=== PATIENT | male | born 1945 | race Caucasian/White ===

== ENCOUNTER 2019-02-04 22:37 | Inpatient (IN) | payer MEDICARE, SELFPAY ==
[2019-02-04 22:37] VITALS: BP 127/100; PULSE 57; RESP 26; TEMP 35.8; O2SAT 82
--- NOTE | 2019-02-04 22:40 | NURSING ---
Pt direct admission from [facility]. No report was called on before arriving to floor from [facility] ER. Upon arriving on unit, Pt lethargic and leaning to the side on stretcher, labored breathing, skin pale and cool to touch. Pt pulled over from stretcher to bed, only moaning with some spastic muscle twitches. VS obtained, oxygen 82% on 5L NC. Pt placed on nonrebreather. Dr. Lowery paged to come see pt. Respiratory called to come see pt. Pt only responsive to painful stimuli. Rapid response called d/t mental status and respiratory status.
[2019-02-04 22:50] VITALS: PULSE 53; RESP 16; RESP 25; O2SAT 96
--- NOTE | 2019-02-04 22:55 | HP.PCM_ITS ---
Problem List (1) Acute encephalopathy Status: Acute History of Present Illness Date of Admission: 02/04/19 Chief Complaint: confusion This 73-year-old male who is a jail patient and was transferred from [facility] to our hospital because of urological needs. Patient was sent from the jail to [facility] because of mental status changes. Per emergency department doctor at [facility], patient was confused and agitated while at a jail. His blood sugars was low and even after administration of sugar which brought his blood glucose to the normal range patient still remained confused. Patient was sent to the jail after a recent treatment of bilateral cellulitis and reportedly completed IV vancomycin on the same day of presentation to the [facility] ED. He was also on fluconazole 200 mg daily and Bactrim DS twice daily for urinary tract infection. CT head obtained at [facility] was unremarkable. Chest x-ray read by radiologist showed no acute abnormalities. However ED doctor thought that there may be a possible right infiltrate. He had a white count of 12,900 with predominant neutrophils. Reportedly his white count few days ago was in the normal range. His H&H was 8/25 and that is around his baseline. His blood glucose was 31 and was given an amp of D50. His BUN/creatinine was 55/3.5. Emergency department doctor reported that few da ys ago his creatinine was 2.2. And previously his creatinine was in the mid to upper ones. There was difficulty placing a Monroy catheter because of marked phimosis. Bladder scan showed urinary volume of more than 700. Emergency department doctor thought that patient may need a urology to place a Monroy catheter. However [facility] did not have a urologist so the case was discussed with Dr. Abebe, urologist at [facility] who accept to see patient. Emergency department doctor reported the patient was recently diagnosed with metabolic encephalopathy. At the ED his ammonia was 60. His troponin and lactic acid was unremarkable. Because of the probable lung infiltrate emergency department doctor gave Zosyn. Rapid response was initially called on patient when patient's arrived from cardiopulmonary hospital because patient was responding only to painful stimuli and his oxygen saturation was in the 80s for which reason he was placed on oxygen by mask. Importantly patient had received Ativan from outside hospital before he was transferred here. From reports patient condition was no change compared to when he was at [facility] emergency department. At [facility] emergency department is potassium was 5.8. On arrival to the hospital his potassium was 7.2 and repeat was 7.8 for which reason patient was transferred from from [facility] to telemetry. Past Medical History Medical History: Medical History (Last Updated 02/05/19 @ 05:01 by Ricardo Lowery MD) HTN (hypertension) I10 Home Medications: Ambulatory Orders Medication Instructions Recorded Atenolol [Tenormin (Beta Mary)] 50 mg PO DAILY 02/04/19 Cholecalciferol (VIT D3) [Vitamin 1,000 unit PO DAILY 02/04/19 D] Docusate Sodium [Colace] 100 mg PO BID 02/04/19 Fluconazole [Diflucan] 200 mg PO DAILY 02/04/19 Gabapentin [Neurontin] 300 mg PO TIDCM 02/04/19 Hydrochlorothiazide [Hctz] 25 mg PO DAILY 02/04/19 Insulin NPH Human Isophane 40 unit SQ BID 02/04/19 [Novolin N] Losartan Potassium [Cozaar] 25 mg PO DAILY 02/04/19 Omeprazole [Prilosec] 20 mg PO DAILY 02/04/19 Oxybutynin Chloride [Ditropan Xl] 10 mg PO DAILY 02/04/19 Smz/Tmp Ds [Bactrim Ds] 1 tablet PO BID 02/04/19 Tamsulosin HCl [Flomax] 0.4 mg PO DAILY 02/04/19 Topiramate [Topamax] 100 mg PO DAILY 02/04/19 Surgical History: - - Unable to obtain at this time because of acute encephalopathy. Lives: Alf Tobacco Use: - - Unable to obtain at this time because of acute encephalopathy. Drugs: - - Unable to obtain at this time because of acute encephalopathy. - *Family History Paternal History Items: - - Unable to obtain at this time because of acute encephalopathy. Maternal History Items: - - Unable to obtain at this time because of acute encephalopathy. Review of Systems Unable to obtain accurate/complete ROS d/t: Unable to obtain at this time because of acute encephalopathy. VTE Information - Inpt Only VTE Present on Admission: No VTE Mechan Device Prophylaxis: None VTE Pharm Prophylaxis ordered?: Yes Patient Problems: Active and Suspected Problems (Last Updated 02/05/19 @ 05:01 by Ricardo Lowery MD) Acute encephalopathy (Acute) - Physical Exam General: - - Onbtunded, respond to sternal rub. HEENT: Atraumatic, Normocephalic Neck: Supple Lungs: Clear to auscultation Cardiovascular: Regular rate Abdomen: Bowel Sounds Present, Soft, Non Tender, Obese Extremities: No clubbing Skin: No rashes, No breakdown Musculoskeletal: No Tenderness to Palpation of Joints or Extremities Neurological: - - Obtunded. Psych/Mental Status: - - Obtunded Assessment/Plan All Active Problems (Last Updated 02/05/19 @ 05:01 by Ricardo Lowery MD) Acute encephalopathy (Acute) This is a 73-year-old male who was recently admitted at a jail after being treated at the hospital for cellulitis now with change in mental status and found to have hypoglycemia; obstructive uropathy; and probable right-sided infiltrates. Acute encephalopathy Etiology includes uremia from obstructive uropathy; hypoglycemia; pneumonia and CO2 narcosis. Treatment as below Follow blood cultures drawn at [facility]. Lactulose was initially ordered p.o. to be given through NG tube route. However NG could not be placed. And is unlikely that patient symptoms is from hyperammonemia since his ammonia level is only 60. We will repeat ammonia level. Liver enzymes unremarkable. Hyperkalemia His potassium at [facility] was 5.8. His potassium at the hospital was 7.2. Repeat was 7.0. Patient was initially admitted to [facility] with telemetry. His EKG showed sinus bradycardia with heart rate of 45 and low voltage QRS . Calcium gluconate ordered. Albuterol 10 mg by examination ordered. Kayexalate perirectal route ordered. Sodium bicarbonate 50 mEq IV of 8.4 patient ordered IV bolus of normal saline. Trend BMP Transferred to PCU with cardiac monitoring CO2 narcosis His ABG showed pH of 7.06 and PCO2 of 73.9. Patient was placed on BiPAP. And repeat ABG showed some improvement. We will continue on BiPAP for now. Obstructive uropathy Monroy catheter was placed by Dr. Abebe, urologist, [facility] Creatinine 3.56 <-3.63 Emergency department at [facility] reported that his creatinine recently was in the mid and upper ones. Received IV normal saline bolus. D5 W drip ordered Likely from obstructive uropathy. Now monroy placed by Urology. Avoid nephrotoxins. Home p.o. Lasix held.. Trend BMP. Hypoglycemia D5W drip and serial blood glucose check Healthcare associated Pneumonia Reportedly patient completed vancomycin on the same day of presentation. The patient is currently on Bactrim We will treat with Zosyn. Hold Bactrim at this time for UTI. We will repeat chest x-ray in a.m. MRSA nares ordered Cystitis Because of acute encephalopathy we will keep patient n.p.o. for now. We will change fluconazole p.o. to fluconazole IV for now. We will check urinalysis and urine culture. Recent Cellulitis Completed a course of vancomycin. Bilateral leg looks red right more than left. This could be due to venous stasis or post inflammatory changes from cellulitis. No treatment needed at this time. DVT prophylaxis Subcutaneous heparin. Code Visit Inpatient E&M: 18405 Init Hosp L3
--- NOTE | 2019-02-04 23:37 | PCM.CONS.U ---
Reason for Consult Date of Consultation: 02/04/19 Reason for Consultation: Retention of urine and severe phimosis History of Present Illness: The patient is a 73 year old male who was in [facility] in the emergency room, the emergency room was not able to place a Worrell catheter they also reported the patient has multiple medical problems coming from a group home. They felt like he was fluid overloaded need a catheter. They called me at 7 PM tonight spoke to the emergency room down in [place] and told them if he was transferred to the [place] emergency room I would be able to place a catheter. I was then called at 11:00 tonight the patient ended up as a direct admit to the hospitalist service, and I was consulted regarding placement of Worrell catheter. On arrival to the floor he was unresponsive with difficulty breathing he was started on BiPAP rapid response was called I was then called to see the patient. The hospitalist has admitted the patient. On inspection he had severe phimosis of the foreskin and impossible to place a catheter past the foreskin. Therefore I prepped the area with Betadine I then infiltrated the foreskin with lidocaine and then performed a short dorsal slit in order to allow the catheter to go past the foreskin and then I was able to maneuver the catheter into the meatus and up into the bladder and then drained a significant amount of clear yellow urine from the bladder. Past Medical History Home Medications: Ambulatory Orders Medication Instructions Recorded Atenolol [Tenormin (Beta Mary)] 50 mg PO DAILY 02/04/19 Smz/Tmp Ds [Bactrim Ds] 1 tablet PO BID 02/04/19 Surgical History: noncontributory Psychiatric History: - - Unable to obtain Lives: - - Unable to obtain Smoking Status: Unknown if ever smoked Tobacco Use: - - Unable to obtain Alcohol: None Drugs: - - Unable to obtain Physical Exam - Physical Exam General: Confused, Disoriented, Lethargic, Non-Cooperative Oral: Moist Mucosa Neck: - - Edematous throughout Lungs: Rhonchi, Wheezes Cardiovascular: Tachycardic Abdomen: Soft, Obese Rectal: Exam deferred Penis: Uncircumcised, - - Severe phimosis of the penis Extremities: Clubbing, Cyanosis Skin: - - Edematous skin throughout the body Assessment/Plan 73-year-old male in poor physical health and poor medical health who presented to the outside emergency room in respiratory distress they were not able to place a catheter he was transferred here for further medical care, I performed a dorsal slit at the bedside after local lidocaine was used, patient tolerated the procedure fairly well, I then placed a 16 Somali catheter into the bladder. Recommend to keep the catheter in place, okay to flush if necessary. Call me with questions.
--- NOTE | 2019-02-04 23:42 | CON.PCM_ITS ---
Reason for Consult Date of Consultation: 02/04/19 Reason for Consultation: Retention of urine and severe phimosis History of Present Illness: The patient is a 73 year old male who was in [facility] in the emergency room, the emergency room was not able to place a Worrell catheter they also reported the patient has multiple medical problems coming from a senior care. They felt like he was fluid overloaded need a catheter. They called me at 7 PM tonight spoke to the emergency room down in [place] and told them if he was transferred to the [place] emergency room I would be able to place a catheter. I was then called at 11:00 tonight the patient ended up as a direct admit to the hospitalist service, and I was consulted regarding placement of Worrell catheter. On arrival to the floor he was unresponsive with difficulty breathing he was started on BiPAP rapid response was called I was then called to see the patient. The hospitalist has admitted the patient. On inspection he had severe phimosis of the foreskin and impossible to place a catheter past the foreskin. Therefore I prepped the area with Betadine I then infiltrated the foreskin with lidocaine and then performed a short dorsal slit in order to allow the catheter to go past the foreskin and then I was able to maneuver the catheter into the meatus and up into the bladder and then drained a significant amount of clear yellow urine from the bladder. Past Medical History Home Medications: Ambulatory Orders Medication Instructions Recorded Atenolol [Tenormin (Beta Mary)] 50 mg PO DAILY 02/04/19 Smz/Tmp Ds [Bactrim Ds] 1 tablet PO BID 02/04/19 Surgical History: noncontributory Psychiatric History: - - Unable to obtain Lives: - - Unable to obtain Smoking Status: Unknown if ever smoked Tobacco Use: - - Unable to obtain Alcohol: None Drugs: - - Unable to obtain Physical Exam - Physical Exam General: Confused, Disoriented, Lethargic, Non-Cooperative Oral: Moist Mucosa Neck: - - Edematous throughout Lungs: Rhonchi, Wheezes Cardiovascular: Tachycardic Abdomen: Soft, Obese Rectal: Exam deferred Penis: Uncircumcised, - - Severe phimosis of the penis Extremities: Clubbing, Cyanosis Skin: - - Edematous skin throughout the body Assessment/Plan 73-year-old male in poor physical health and poor medical health who presented to the outside emergency room in respiratory distress they were not able to place a catheter he was transferred here for further medical care, I performed a dorsal slit at the bedside after local lidocaine was used, patient tolerated the procedure fairly well, I then placed a 16 Trinidadian catheter into the bladder. Recommend to keep the catheter in place, okay to flush if necessary. Call me with questions.
[2019-02-04 23:49] VITALS: PULSE 49; RESP 19; O2SAT 100
[2019-02-04 23:52] VITALS: PULSE 49
[2019-02-04 23:56] VITALS: BMI 45.9
[2019-02-05] VITALS (26 sets, daily range): BP systolic 95–144; BP diastolic 35–74; PULSE 42–67; RESP 14–22; TEMP 35.9–36.9; O2SAT 81–100; BMI 45.9
[2019-02-05 00:21] LABS: Allen Test POS; Base Excess -9 mmol/L (-2 to +2); Bicarbonate 19.9 mmol/L (22-26); Blood Gas Specimen Type ART; EPAP 8; FI02 35; IPAP 18; PO2 124 mmHG (75-100); RR 16; SITE L Radial; SO2 97 % (95-99); Time Given 5; Total Carbon Dioxide 22 mmol/L; pCO2 59.3 mmHg (35-45); pH 7.13 (7.35-7.45)
[2019-02-05 00:21] LABS: Bedside Glucose 82 mg/dL (70-110)
--- NOTE | 2019-02-05 00:32 | NURSING ---
Rapid Response called @ 2238, following patient arrival @ 2235 to floor. This was d/t Patient with abdominal breathing, agonal. See vitals. Non responsive except to painful stimuli. No report was received from transferring facility prior to his arrival, we were unsure of baseline for patient.
[2019-02-05 01:04] LABS: Blood Gas Specimen Type ART; SITE R RADIAL
[2019-02-05 01:05] LABS: O2 Delivery Device NRB Mask; Time Given 2246
[2019-02-05 01:06] LABS: Base Excess -9 mmol/L (-2 to +2); Bicarbonate 21.1 mmol/L (22-26); PO2 281 mmHG (75-100); pCO2 73.9 mmHg (35-45); pH 7.06 (7.35-7.45)
[2019-02-05 01:07] LABS: SO2 99 % (95-99); Total Carbon Dioxide 23 mmol/L
[2019-02-05] MEDS: Dext 5%-0.45% NS 1,000 ML 100 ML IV (01:07)
--- NOTE | 2019-02-05 01:15 | CPS ---
CRITICAL VALUES OF BLOOD GAS RESULTS OF pH 7.06, pCO2 73.9, and pO2 [address] Lowery at 2250 on 02/04/2019.
--- NOTE | 2019-02-05 01:20 | CPS ---
Critical value of Blood gas result of PH 7.[address] Lowery on 02/05/2019 at 0030
[2019-02-05 01:21] LABS: Bedside Glucose 81 mg/dL (70-110)
[2019-02-05 01:47] LABS: Absolute Neutrophil Count 7.5 X10^3/uL (2.0-7.7); Basophil# 0.01 X10^3/uL; Basophil% 0.1 % (0-1); Eosinophil# 0.01 X10^3/uL; Eosinophils% 0.1 % (0-5); Hemoglobin 7.6 g/dl (13.0-16.5); Lymphocyte % 7.5 % (19-41); Mean Corp Hgb Conc 29.2 g/gl (32-36); Mean Corpuscular Hgb 29.3 pg (27.0-32.0); Mean Corpuscular Volume 100.4 fL (80-94); Mean Platelet Vol. 10.6 fl (6.2-12.0); Monocyte# 1.02 X10^3/uL; Neutrophil % 80.9 % (47-70); Platelet Count 220 K/mm3 (150-450); RBC Distribution Width CV 17.9 % (11.6-14.6); RBC Distribution Width SD 66.1 fl (35.1-43.9); Red Blood Count 2.59 M/mm3 (4.6-6.2); White Blood Count 9.3 K/mm3 (4.4-11.0)
[2019-02-05 01:50] LABS: Differential Indicated SCAN CRITERIA MET; POSITIVE COUNT NO; POSITIVE DIFFERENTIAL NO; POSITIVE MORPHOLOGY YES
[2019-02-05 01:51] LABS: Absolute Nucleated RBC Count 0.09 10^3/uL (0-5)
[2019-02-05 02:10] LABS: Vitamin B12 251 pg/mL (211-911)
[2019-02-05 02:16] LABS: Bedside Glucose 84 mg/dL (70-110)
[2019-02-05 02:29] LABS: Anisocytosis 1+; Hypochromasia 1+; Platelet Estimate ADEQUATE (ADEQ); Polychromasia RARE
[2019-02-05 02:30] LABS: AST(SGOT) 28 U/L (15-37); Alanine Aminotransfer ALT/SGPT 9 U/L (16-61); Albumin, Serum 2.2 g/dL (3.2-5.0); Alkaline Phosphatase 79 U/L (45-117); Anion Gap 4 (5-15); BUN 54 mg/dL (7-18); BUN/Creat Ratio 15.2 RATIO (10-20); Bilirubin, Direct 0.07 mg/dL (0.00-0.30); Calcium,Total 8.1 mg/dL (8.5-10.1); Chloride 112 mmol/L (98-107); Creatinine, Serum 3.56 mg/dL (0.70-1.30); EST Glomerular Filtration Rate 18 mL/min (>60); Est Glom Filt Rate - Afr Amer 22 mL/min (>60); Estimated Creatinine Clearance 18.15 ml/min; Glucose 79 mg/dL (74-106); Macrocytosis RARE; Potassium 7.2 mmol/L (3.5-5.1); Protein, Total 7.2 g/dL (6.4-8.2); Sodium Level 137 mmol/L (136-145); Thyroid Stim Hormone (TSH) 1.98 uIU/mL (0.358-3.74)
[2019-02-05 03:21] LABS: Bedside Glucose 85 mg/dL (70-110)
[2019-02-05 03:36] LABS: Bacteria 0 SEEN /hpf (None Seen); Mucous, Urine 0 SEEN /hpf (<or=2+); Red Blood Cells-Urine 0 SEEN /hpf (0-5)
[2019-02-05 03:37] LABS: Color, Urine Yellow (Yellow); Glucose, Dipstick Normal (Normal); Ketone-Dipstick Negative (Negative); Leukocyte Esterase-Dipstick 100 /ul (Negative); Nitrite-Dipstick Negative (Negative); Occult Blood-Urine 25 /ul (Negative); Protein-Dipstick 30 mg/dl (Negative); Specific Gravity, Urine 1.025 (1.002-1.030); Urine Bilirubin Dipstick Negative (Negative); Urine Clarity Clear (Clear); Urine Urobilinogen Normal (Normal)
[2019-02-05 03:42] LABS: Squamous Epithelial Cells - UA 0-5 SEEN /hpf (0-5); White Blood Cells 0-5 SEEN /hpf (0-5)
[2019-02-05 03:43] LABS: Hyaline Cast 0-5 SEEN /lpf (0-5)
--- NOTE | 2019-02-05 03:55 | NURSING ---
DR ZALDIVAR NOTIFIED OF PT'S POTASSIUM LEVEL OF 7.2. WILL DO STAT REPEAT POTASSIUM AND STAT EKG. UNABLE TO PUSH CALCIUM GLUCONATE ON MED/SURG. SO PT TO BE TRANSFERRED TO PCU. REPORT CALLED TO NURSE ESTEVEZ.
[2019-02-05] MEDS: Sodium Bicarbonate 8.4% 50 ML Syringe 50 MEQ IV (04:29)
[2019-02-05 04:36] LABS: BUN 54 mg/dL (7-18); Chloride 114 mmol/L (98-107); Creatinine, Serum 3.63 mg/dL (0.70-1.30); EST Glomerular Filtration Rate 18 mL/min (>60); Est Glom Filt Rate - Afr Amer 21 mL/min (>60); Glucose 144 mg/dL (74-106); Sodium Level 138 mmol/L (136-145)
--- NOTE | 2019-02-05 05:25 | RAD_ITS ---
STUDY: X-RAY CHEST REASON FOR EXAM: Male, 73 years old. Acute encephalopathy/confusion. TECHNIQUE: Single AP portable view of the chest. COMPARISON: None. FINDINGS: EKG electrodes are seen. There is evidence of bibasilar congestion and increased interstitial markings suggestive of a CHF. There is no demonstrated pleural abnormality. There is moderate cardiac enlargement. Normal mediastinum and jeovany. Normal visualized pulmonary arteries. There is atherosclerotic calcification of the aortic arch with tortuosity. Normal visualized thoracic spine. Normal visualized ribs, clavicles, and shoulders. There is no demonstrated abnormality of the visualized soft tissue structures of the upper abdomen. RAD/Chest 1 View (Portable) IMPRESSION: Cardiomegaly. CHF. Electronically Signed: Babak Morales, at 10:20 EDT , Service support ,
[2019-02-05] MEDS: Sodium Polystyrene Sulfonate 15 GM/60 ML UDC 30 GM RECTAL (05:50)
[2019-02-05 05:51] LABS: Bedside Glucose 89 mg/dL (70-110)
[2019-02-05 06:11] LABS: Bedside Glucose 87 mg/dL (70-110)
[2019-02-05] MEDS: 0.9% Normal Saline 1,000 ML 999 ML IV (06:30)
[2019-02-05 07:10] LABS: Bedside Glucose 91 mg/dL (70-110)
[2019-02-05 08:08] LABS: Anion Gap 5 (5-15); BUN 55 mg/dL (7-18); BUN/Creat Ratio 15.9 RATIO (10-20); Chloride 112 mmol/L (98-107); Creatinine, Serum 3.45 mg/dL (0.70-1.30); EST Glomerular Filtration Rate 19 mL/min (>60); Est Glom Filt Rate - Afr Amer 23 mL/min (>60); Estimated Creatinine Clearance 18.72 ml/min; Glucose 160 mg/dL (74-106); Potassium 5.8 mmol/L (3.5-5.1); Sodium Level 139 mmol/L (136-145)
[2019-02-05 08:11] LABS: Bedside Glucose 148 mg/dL (70-110)
[2019-02-05 09:05] LABS: Bedside Glucose 131 mg/dL (70-110)
[2019-02-05] MEDS: Heparin Injection (Vial) 5,000 UNIT/ML VIAL 5000 UNIT SC ×2 (11:04→21:57)
[2019-02-05 11:06] LABS: Bedside Glucose 90 mg/dL (70-110)
--- NOTE | 2019-02-05 11:31 | CPS ---
Unable to obtain ABG at this time. Vale Mckeon notified and verbal order to obtain at another time today.
[2019-02-05 11:55] LABS: Bedside Glucose 88 mg/dL (70-110)
[2019-02-05 12:56] LABS: Anion Gap 6 (5-15); BUN 55 mg/dL (7-18); BUN/Creat Ratio 16.4 RATIO (10-20); Calcium,Total 8.4 mg/dL (8.5-10.1); Chloride 110 mmol/L (98-107); Creatinine, Serum 3.36 mg/dL (0.70-1.30); EST Glomerular Filtration Rate 19 mL/min (>60); Est Glom Filt Rate - Afr Amer 23 mL/min (>60); Estimated Creatinine Clearance 19.23 ml/min; Glucose 96 mg/dL (74-106); Potassium 5.4 mmol/L (3.5-5.1); Sodium Level 139 mmol/L (136-145)
[2019-02-05 13:52] LABS: Pathologist Review Reviewed
--- NOTE | 2019-02-05 14:40 | PN_ITS ---
<Vale Mckeon - Last Filed: 02/05/19 15:08> Patient Problems: Active and Suspected Problems (Last Updated 02/05/19 @ 05:01 by Ricardo Lowery MD) Acute encephalopathy (Acute) Subjective: Patient seen and examined. BiPAP in place. Alert and responsive. - Physical Exam General: Alert, Oriented x3, Cooperative HEENT: Atraumatic, PERRLA, EOMI, Normocephalic Neck: Supple, No JVD, Negative Carotid Bruits Lungs: Clear to auscultation, Diminished Cardiovascular: Regular rate, Regular Rhythm, Normal S1, Normal S2, No murmurs Abdomen: Bowel Sounds Present, Soft, Non Tender, Non-Distended, Obese Extremities: No clubbing, No cyanosis, Capillary Refill Less than 3 Seconds, Edema - BLLE Skin: - - Chronic venous stasis skin changes bilateral lower extremities, left greater than right. Musculoskeletal: No Tenderness to Palpation of Joints or Extremities Neurological: Cranial nerves II-XII grossly intact, Neuro grossly intact Psych/Mental Status: Normal Affect, Appropriate Vital Signs Temp Pulse Resp BP Pulse Ox 98 F 62 16 115/74 93 02/05/19 08:00 02/05/19 14:00 02/05/19 14:00 02/05/19 14:00 02/05/19 14:00 Oxygen Flow Rate (L/min) 5 Oxygen Delivery Method Room Air Weight: 302 lb 0.533 oz Body Mass Index (BMI) 45.9 Intake and Output for Last 24 Hours 02/03/19 02/04/19 02/05/19 23:59 23:59 23:59 Intake Total 117 / 117 Output Total 875 / 875 Balance -758 / -758 Microbiology Past 72 Hours 02/05/19 02:08 Respiratory Panel (PCR) - Final Mucosa - Nasopharyngeal Laboratory Tests Past 24 Hrs 02/04/19 02/05/19 02/05/19 22:46 00:12 01:25 WBC RBC Hgb Hct MCV MCH MCHC RDW RDW Differential Plt Count MPV Immature Gran % (Auto) Neut % (Auto) Lymph % (Auto) [place] % (Auto) Eos % (Auto) Baso % (Auto) Absolute Neuts (auto) Absolute Lymphs (auto) Total Counted Nucleated RBC % Diff Path Review Platelet Estimate Polychromasia Hypochromasia Anisocytosis Macrocytosis Absolute Retic Specimen Type ART ART Sample Site R RADIAL L Radial pH 7.06 L* 7.13 L* Bicarbonate Actual 21.1 L 19.9 L POC Total CO2 23 22 Base Excess -9 L -9 L O2 Saturation 99 97 O2 % 35 ABG pCO2 73.9 H* 59.3 H ABG pO2 281 H 124 H Patel Test NA POS Respiration Rate 16 O2 Delivery Device NRB Mask Bi / C PAP Liter Flow 15.0 EPAP 8 IPAP 18 Blood Gas Notified Whom HOSP MD HOSP MD Blood Gas Notified Time 2246 5 Sodium Potassium Chloride Carbon Dioxide Anion Gap BUN Creatinine Estim Creat Clear Calc Est GFR (MDRD) Af Amer Est GFR (MDRD) Non-Af BUN/Creatinine Ratio Glucose Calcium Total Bilirubin Direct Bilirubin AST ALT Alkaline Phosphatase Ammonia Total Protein Albumin Globulin Vitamin B12 251 TSH Urine Color Urine Clarity Urine pH Ur Specific [place] Urine Protein Urine Glucose (UA) Urine Ketones Urine Occult Blood Urine Nitrite Urine Bilirubin Urine Urobilinogen Ur Leukocyte Esterase Urine RBC Urine WBC Ur Squamous Epith Cells Urine Bacteria Hyaline Casts Urine Mucus 02/05/19 02/05/19 02/05/19 01:25 01:25 02:00 WBC 9.3 RBC 2.59 L Hgb 7.6 L Hct 26.0 L MCV 100.4 H MCH 29.3 MCHC 29.2 L RDW 17.9 H RDW Differential 66.1 H Plt Count 220 MPV 10.6 Immature Gran % (Auto) 0.400 Neut % (Auto) 80.9 H Lymph % (Auto) 7.5 L [place] % (Auto) 11.0 H Eos % (Auto) 0.1 Baso % (Auto) 0.1 Absolute Neuts (auto) 7.5 Absolute Lymphs (auto) 0.70 L Total Counted Not Reportable Nucleated RBC % 1.0 Diff Path Review Reviewed Platelet Estimate ADEQUATE Polychromasia RARE Hypochromasia 1+ Anisocytosis 1+ Macrocytosis RARE Absolute Retic 0.09 Specimen Type Sample Site pH Bicarbonate Actual POC Total CO2 Base Excess O2 Saturation O2 % ABG pCO2 ABG pO2 Patel Test Respiration Rate O2 Delivery Device Liter Flow EPAP IPAP Blood Gas Notified Whom Blood Gas Notified Time Sodium 137 Potassium 7.2 H* Chloride 112 H Carbon Dioxide 21.0 Anion Gap 4 L BUN 54 H Creatinine 3.56 H Estim Creat Clear Calc 18.15 Est GFR (MDRD) Af Amer 22 L Est GFR (MDRD) Non-Af 18 L BUN/Creatinine Ratio 15.2 Glucose 79 Calcium 8.1 L Total Bilirubin 0.20 Direct Bilirubin 0.07 AST 28 ALT 9 L Alkaline Phosphatase 79 Ammonia Total Protein 7.2 Albumin 2.2 L Globulin 5.0 H Vitamin B12 TSH 1.98 Urine Color Yellow Urine Clarity Clear Urine pH 5.0 Ur Specific [place] 1.025 Urine Protein 30 H Urine Glucose (UA) Normal Urine Ketones Negative Urine Occult Blood 25 H Urine Nitrite Negative Urine Bilirubin Negative Urine Urobilinogen Normal Ur Leukocyte Esterase 100 H Urine RBC 0 SEEN Urine WBC 0-5 SEEN Ur Squamous Epith Cells 0-5 SEEN Urine Bacteria 0 SEEN Hyaline Casts 0-5 SEEN Urine Mucus 0 SEEN 02/05/19 02/05/19 02/05/19 03:10 03:10 06:30 WBC RBC Hgb Hct MCV MCH MCHC RDW RDW Differential Plt Count MPV Immature Gran % (Auto) Neut % (Auto) Lymph % (Auto) [place] % (Auto) Eos % (Auto) Baso % (Auto) Absolute Neuts (auto) Absolute Lymphs (auto) Total Counted Nucleated RBC % Diff Path Review Platelet Estimate Polychromasia Hypochromasia Anisocytosis Macrocytosis Absolute Retic Specimen Type Sample Site pH Bicarbonate Actual POC Total CO2 Base Excess O2 Saturation O2 % ABG pCO2 ABG pO2 Patel Test Respiration Rate O2 Delivery Device Liter Flow EPAP IPAP Blood Gas Notified Whom Blood Gas Notified Time Sodium 138 Potassium 7.0 H* Cancelled Chloride 114 H Carbon Dioxide 17.0 L Anion Gap Cancelled BUN 54 H Creatinine 3.63 H Estim Creat Clear Calc 17.80 Est GFR (MDRD) Af Amer 21 L Est GFR (MDRD) Non-Af 18 L BUN/Creatinine Ratio Cancelled Glucose 144 H Calcium 8.0 L Total Bilirubin Direct Bilirubin AST ALT Alkaline Phosphatase Ammonia 60.0 H Total Protein Albumin Globulin Vitamin B12 TSH Urine Color Urine Clarity Urine pH Ur Specific [place] Urine Protein Urine Glucose (UA) Urine Ketones Urine Occult Blood Urine Nitrite Urine Bilirubin Urine Urobilinogen Ur Leukocyte Esterase Urine RBC Urine WBC Ur Squamous Epith Cells Urine Bacteria Hyaline Casts Urine Mucus 02/05/19 02/05/19 07:44 11:45 WBC RBC Hgb Hct MCV MCH MCHC RDW RDW Differential Plt Count MPV Immature Gran % (Auto) Neut % (Auto) Lymph % (Auto) [place] % (Auto) Eos % (Auto) Baso % (Auto) Absolute Neuts (auto) Absolute Lymphs (auto) Total Counted Nucleated RBC % Diff Path Review Platelet Estimate Polychromasia Hypochromasia Anisocytosis Macrocytosis Absolute Retic Specimen Type Sample Site pH Bicarbonate Actual POC Total CO2 Base Excess O2 Saturation O2 % ABG pCO2 ABG pO2 Patel Test Respiration Rate O2 Delivery Device Liter Flow EPAP IPAP Blood Gas Notified Whom Blood Gas Notified Time Sodium 139 139 Potassium 5.8 H 5.4 H Chloride 112 H 110 H Carbon Dioxide 22.0 23.0 Anion Gap 5 6 BUN 55 H 55 H Creatinine 3.45 H 3.36 H Estim Creat Clear Calc 18.72 19.23 Est GFR (MDRD) Af Amer 23 L 23 L Est GFR (MDRD) Non-Af 19 L 19 L BUN/Creatinine Ratio 15.9 16.4 Glucose 160 H 96 Calcium 8.0 L 8.4 L Total Bilirubin Direct Bilirubin AST ALT Alkaline Phosphatase Ammonia Total Protein Albumin Globulin Vitamin B12 TSH Urine Color Urine Clarity Urine pH Ur Specific [place] Urine Protein Urine Glucose (UA) Urine Ketones Urine Occult Blood Urine Nitrite Urine Bilirubin Urine Urobilinogen Ur Leukocyte Esterase Urine RBC Urine WBC Ur Squamous Epith Cells Urine Bacteria Hyaline Casts Urine Mucus POC Glucose 02/05/19 02/05/19 02/05/19 11:51 09:00 08:03 POC Glucose 88 131 H 148 H 02/05/19 02/05/19 02/05/19 07:07 06:04 04:15 POC Glucose 91 87 89 02/05/19 02/05/19 02/05/19 03:18 02:11 01:14 POC Glucose 85 84 81 02/05/19 02/04/19 00:15 22:31 POC Glucose 82 90 Medical Necessity - Tobacco Use Smoking Status: Unknown if ever smoked Tobacco Use: - - Unable to obtain at this time because of acute encephalopathy. Assessment/Plan All Active Problems (Last Updated 02/05/19 @ 05:01 by Ricardo Lowery MD) Acute encephalopathy (Acute) 1. Acute hypoxic and hypercapnic respiratory failure, suspect multifactorial due to fluid overload as a result of obstructive uropathy, chronic COPD and suspected underlying MARIEL/obesity hypoventilation syndrome-hypercapnia improved with BiPAP. Continue supplement oxygen to maintain O2 at or above 90%. Continue BiPAP with periods of rest and nightly. Chest x-ray at outside facility was reported to be suspicious for right infiltrate. Repeat chest x-ray this morning shows cardiomegaly, CHF. No infiltrate noted. Repeat ABGs pending. 2. Acute metabolic encephalopathy-multifactorial due to acute renal failure, elevated ammonia and acute hypoxic and hypercapnic respiratory failure. Mental status improved. Continue treatment of underlying processes. 3. Possible diastolic CHF? CXR consistent with CHF. Check BNP. Possibly fluid overload due to obstructive uropathy/urinary retention. No prior records of echo. Obtain echo. 4. Obstructive uropathy/BPH- Catheter placed by urology. Continue Flomax, oxybutynin regimen. Outpatient f/u with urology. 5. Acute kidney injury on CKD stage III suspected secondary to obstructive uropathy- Improving, monroy in place. Trend BMP. Consult nephrology. Check urine sodium and urine creatinine. Check kidney and bladder ultrasound. 6. Hyperkalemia secondary to acute kidney injury- received Kayexalate, improved. Trend BMP. 7. Recent UTI dx-treated with fluconazole and Bactrim. UA on admission unremarkable. Patient was to continue fluconazole for 2 weeks with stop date 02/07/2019. Culture pending. Consult 8. Acute macrocytic anemia- unclear baseline, check iron, b12, folate, stool for OB. Plan to transfuse hgb less than 7. Trend CBC. 9. Mild bradycardia-reduce home beta-mirza regimen. Continue to monitor telemetry. Asymptomatic. 10. Chronic venous stasis dermatitis with recent treatment for bilateral lower extremity cellulitis-lower extremities do not appear acutely infected. Wound RN consult. Rupesh wraps bilateral lower extremities. 11. Elevated ammonia, suspect congestive hepatopathy 2/2 fluid overload- lactulose ordered. Repeat ammonia level. LFTs normal. 12. Hypertension-stable. Home HCTZ and losartan regimen on hold given acute kidney injury. 13. Type 2 diabetes [id number] ACHS with sliding scale insulin. Hypoglycemia on admission, improved. 14. Morbid obesity-encouraged diet lifestyle modifications. DVT prophylaxis-heparin subcu This patient was seen by CAPRICE Polo under the supervision of Dr. Kauffman. <Bita Kauffman - Last Filed: 02/05/19 17:42> - Physical Exam Vital Signs Temp Pulse Resp BP Pulse Ox 98 F 53 L 16 123/69 H 96 02/05/19 15:00 02/05/19 15:01 02/05/19 15:20 02/05/19 15:00 02/05/19 15:20 Oxygen Flow Rate (L/min) 5 Oxygen Delivery Method Room Air Weight: 137 kg Body Mass Index (BMI) 45.9 Intake and Output for Last 24 Hours 02/03/19 02/04/19 02/05/19 23:59 23:59 23:59 Intake Total 1657 / 1657 Output Total 875 / 875 Balance 782 / 782 Microbiology Past 72 Hours 02/05/19 02:08 Respiratory Panel (PCR) - Final Mucosa - Nasopharyngeal Laboratory Tests Past 24 Hrs 02/04/19 02/05/19 02/05/19 22:46 00:12 01:25 WBC RBC Hgb Hct MCV MCH MCHC RDW RDW Differential Plt Count MPV Immature Gran % (Auto) Neut % (Auto) Lymph % (Auto) [place] % (Auto) Eos % (Auto) Baso % (Auto) Absolute Neuts (auto) Absolute Lymphs (auto) Total Counted Nucleated RBC % Diff Path Review Platelet Estimate Polychromasia Hypochromasia Anisocytosis Macrocytosis Absolute Retic Specimen Type ART ART Sample Site R RADIAL L Radial pH 7.06 L* 7.13 L* Bicarbonate Actual 21.1 L 19.9 L POC Total CO2 23 22 Base Excess -9 L -9 L O2 Saturation 99 97 O2 % 35 ABG pCO2 73.9 H* 59.3 H ABG pO2 281 H 124 H Patel Test NA POS Respiration Rate 16 O2 Delivery Device NRB Mask Bi / C PAP Liter Flow 15.0 EPAP 8 IPAP 18 Blood Gas Notified Whom HOSP HOSP Blood Gas Notified Time 7986 5 Sodium Potassium Chloride Carbon Dioxide Anion Gap BUN Creatinine Estim Creat Clear Calc Est GFR (MDRD) Af Amer Est GFR (MDRD) Non-Af BUN/Creatinine Ratio Glucose Calcium Iron TIBC Iron Saturation Ferritin Total Bilirubin Direct Bilirubin AST ALT Alkaline Phosphatase Ammonia B-Natriuretic Peptide Total Protein Albumin Globulin Vitamin B12 251 Folate TSH Urine Color Urine Clarity Urine pH Ur Specific [place] Urine Protein Urine Glucose (UA) Urine Ketones Urine Occult Blood Urine Nitrite Urine Bilirubin Urine Urobilinogen Ur Leukocyte Esterase Urine RBC Urine WBC Ur Squamous Epith Cells Urine Bacteria Hyaline Casts Urine Mucus 04/01/2102/05/19 02/05/19 01:25 01:25 02:00 WBC 9.3 RBC 2.59 L Hgb 7.6 L Hct 26.0 L MCV 100.4 H MCH 29.3 MCHC 29.2 L RDW 17.9 H RDW Differential 66.1 H Plt Count 220 MPV 10.6 Immature Gran % (Auto) 0.400 Neut % (Auto) 80.9 H Lymph % (Auto) 7.5 L [place] % (Auto) 11.0 H Eos % (Auto) 0.1 Baso % (Auto) 0.1 Absolute Neuts (auto) 7.5 Absolute Lymphs (auto) 0.70 L Total Counted Not Reportable Nucleated RBC % 1.0 Diff Path Review Reviewed Platelet Estimate ADEQUATE Polychromasia RARE Hypochromasia 1+ Anisocytosis 1+ Macrocytosis RARE Absolute Retic 0.09 Specimen Type Sample Site pH Bicarbonate Actual POC Total CO2 Base Excess O2 Saturation O2 % ABG pCO2 ABG pO2 Patel Test Respiration Rate O2 Delivery Device Liter Flow EPAP IPAP Blood Gas Notified Whom Blood Gas Notified Time Sodium 137 Potassium 7.2 H* Chloride 112 H Carbon Dioxide 21.0 Anion Gap 4 L BUN 54 H Creatinine 3.56 H Estim Creat Clear Calc 18.15 Est GFR (MDRD) Af Amer 22 L Est GFR (MDRD) Non-Af 18 L BUN/Creatinine Ratio 15.2 Glucose 79 Calcium 8.1 L Iron TIBC Iron Saturation Ferritin Total Bilirubin 0.20 Direct Bilirubin 0.07 AST 28 ALT 9 L Alkaline Phosphatase 79 Ammonia B-Natriuretic Peptide Total Protein 7.2 Albumin 2.2 L Globulin 5.0 H Vitamin B12 Folate TSH 1.98 Urine Color Yellow Urine Clarity Clear Urine pH 5.0 Ur Specific [place] 1.025 Urine Protein 30 H Urine Glucose (UA) Normal Urine Ketones Negative Urine Occult Blood 25 H Urine Nitrite Negative Urine Bilirubin Negative Urine Urobilinogen Normal Ur Leukocyte Esterase 100 H Urine RBC 0 SEEN Urine WBC 0-5 SEEN Ur Squamous Epith Cells 0-5 SEEN Urine Bacteria 0 SEEN Hyaline Casts 0-5 SEEN Urine Mucus 0 SEEN 02/05/19 02/05/19 02/05/19 03:10 03:10 06:30 WBC RBC Hgb Hct MCV MCH MCHC RDW RDW Differential Plt Count MPV Immature Gran % (Auto) Neut % (Auto) Lymph % (Auto) [place] % (Auto) Eos % (Auto) Baso % (Auto) Absolute Neuts (auto) Absolute Lymphs (auto) Total Counted Nucleated RBC % Diff Path Review Platelet Estimate Polychromasia Hypochromasia Anisocytosis Macrocytosis Absolute Retic Specimen Type Sample Site pH Bicarbonate Actual POC Total CO2 Base Excess O2 Saturation O2 % ABG pCO2 ABG pO2 Patel Test Respiration Rate O2 Delivery Device Liter Flow EPAP IPAP Blood Gas Notified Whom Blood Gas Notified Time Sodium 138 Potassium 7.0 H* Cancelled Chloride 114 H Carbon Dioxide 17.0 L Anion Gap Cancelled BUN 54 H Creatinine 3.63 H Estim Creat Clear Calc 17.80 Est GFR (MDRD) Af Amer 21 L Est GFR (MDRD) Non-Af 18 L BUN/Creatinine Ratio Cancelled Glucose 144 H Calcium 8.0 L Iron TIBC Iron Saturation Ferritin Total Bilirubin Direct Bilirubin AST ALT Alkaline Phosphatase Ammonia 60.0 H B-Natriuretic Peptide Total Protein Albumin Globulin Vitamin B12 Folate TSH Urine Color Urine Clarity Urine pH Ur Specific [place] Urine Protein Urine Glucose (UA) Urine Ketones Urine Occult Blood Urine Nitrite Urine Bilirubin Urine Urobilinogen Ur Leukocyte Esterase Urine RBC Urine WBC Ur Squamous Epith Cells Urine Bacteria Hyaline Casts Urine Mucus 02/05/19 02/05/19 02/05/19 07:44 11:45 11:45 WBC RBC Hgb Hct MCV MCH MCHC RDW RDW Differential Plt Count MPV Immature Gran % (Auto) Neut % (Auto) Lymph % (Auto) [place] % (Auto) Eos % (Auto) Baso % (Auto) Absolute Neuts (auto) Absolute Lymphs (auto) Total Counted Nucleated RBC % Diff Path Review Platelet Estimate Polychromasia Hypochromasia Anisocytosis Macrocytosis Absolute Retic Specimen Type Sample Site pH Bicarbonate Actual POC Total CO2 Base Excess O2 Saturation O2 % ABG pCO2 ABG pO2 Patel Test Respiration Rate O2 Delivery Device Liter Flow EPAP IPAP Blood Gas Notified Whom Blood Gas Notified Time Sodium 139 139 Potassium 5.8 H 5.4 H Chloride 112 H 110 H Carbon Dioxide 22.0 23.0 Anion Gap 5 6 BUN 55 H 55 H Creatinine 3.45 H 3.36 H Estim Creat Clear Calc 18.72 19.23 Est GFR (MDRD) Af Amer 23 L 23 L Est GFR (MDRD) Non-Af 19 L 19 L BUN/Creatinine Ratio 15.9 16.4 Glucose 160 H 96 Calcium 8.0 L 8.4 L Iron 29 L TIBC 202 L Iron Saturation 14.4 L Ferritin 182 Total Bilirubin Direct Bilirubin AST ALT Alkaline Phosphatase Ammonia B-Natriuretic Peptide Total Protein Albumin Globulin Vitamin B12 Folate 2.10 L TSH Urine Color Urine Clarity Urine pH Ur Specific [place] Urine Protein Urine Glucose (UA) Urine Ketones Urine Occult Blood Urine Nitrite Urine Bilirubin Urine Urobilinogen Ur Leukocyte Esterase Urine RBC Urine WBC Ur Squamous Epith Cells Urine Bacteria Hyaline Casts Urine Mucus 02/05/19 02/05/19 02/05/19 15:45 15:45 15:45 WBC RBC Hgb 7.7 L Hct 26.6 L MCV MCH MCHC RDW RDW Differential Plt Count MPV Immature Gran % (Auto) Neut % (Auto) Lymph % (Auto) [place] % (Auto) Eos % (Auto) Baso % (Auto) Absolute Neuts (auto) Absolute Lymphs (auto) Total Counted Nucleated RBC % Diff Path Review Platelet Estimate Polychromasia Hypochromasia Anisocytosis Macrocytosis Absolute Retic Specimen Type Sample Site pH Bicarbonate Actual POC Total CO2 Base Excess O2 Saturation O2 % ABG pCO2 ABG pO2 Patel Test Respiration Rate O2 Delivery Device Liter Flow EPAP IPAP Blood Gas Notified Whom Blood Gas Notified Time Sodium Potassium Chloride Carbon Dioxide Anion Gap BUN Creatinine Estim Creat Clear Calc Est GFR (MDRD) Af Amer Est GFR (MDRD) Non-Af BUN/Creatinine Ratio Glucose Calcium Iron TIBC Iron Saturation Ferritin Total Bilirubin Direct Bilirubin AST ALT Alkaline Phosphatase Ammonia 36.0 H B-Natriuretic Peptide 120.3 H Total Protein Albumin Globulin Vitamin B12 Folate TSH Urine Color Urine Clarity Urine pH Ur Specific [place] Urine Protein Urine Glucose (UA) Urine Ketones Urine Occult Blood Urine Nitrite Urine Bilirubin Urine Urobilinogen Ur Leukocyte Esterase Urine RBC Urine WBC Ur Squamous Epith Cells Urine Bacteria Hyaline Casts Urine Mucus POC Glucose 02/05/19 02/05/19 02/05/19 15:47 11:51 09:00 POC Glucose 100 88 131 H 02/05/19 02/05/19 02/05/19 08:03 07:07 06:04 POC Glucose 148 H 91 87 02/05/19 02/05/19 02/05/19 04:15 03:18 02:11 POC Glucose 89 85 84 02/05/19 02/05/19 02/04/19 01:14 00:15 22:31 POC Glucose 81 82 90 Assessment/Plan This patient was seen in conjunction with Vale Mckeon VULCANIZING MACHINE OPERATOR. I have indepen dently interviewed and examined the patient and reviewed pertinent historical, laboratory, and other data. Please refer to her note for patient's presentation, findings, and recommendations. Patient was seen and examined. He is less confused. Off BiPAP. Alert and oriented x3. Records from [facility] reviewed -recurrent admissions for bilateral lower extremity swelling secondary to bilateral venous stasis, ARMIDA Creatinine on discharge was 1.52. History of COPD, type II DM-not on any hypoglycemic agents Recent candiduria, on fluconazole Vitals were reviewed -stable; slightly bradycardic Physical Exam: Gen: Obese, not pale, not jaundiced, alert oriented x3, not on oxygen CVS:HS I +II, regular, no murmurs RESP: Diminished at lung bases GI: Full, firm, nontender, no ballotable organs EXT:No edema Labs reviewed -refuses repeat BMP ASSESSMENT: 1. Acute metabolic encephalopathy secondary to hypercapnia 2. Acute hypoxic/hypercapnic respiratory failure 3. Possible diastolic CHF 4. [place] I on CKD stage III secondary to likely obstructive uropathy 5. Obstructive uropathy/BPH 6. Recent UTI, candiduria, on fluconazole, was on Bactrim 7. Hyperkalemia 8. Anemia, macrocytic 9. Bradycardia 10. Chronic venous stasis dermatitis 11. Hyperammonemia, unclear etiology 12. Hypertension 13. Type II DM 14. Morbid obesity Meds reviewed Plan: We will continue to monitor mentation BiPAP nightly and as needed when sleeping Nephrology consult Labs in a.m. Workup for anemia Decrease atenolol to 25 mg Elevate lower extremities, Rupesh wraps Continue with lactulose, repeat ammonia Continue to hold hydrochlorothiazide and losartan Accu-Cheks with low-dose insulin sliding scale Code Visit Inpatient E&M: [id number] [facility] Hosp L3
--- NOTE | 2019-02-05 14:55 | US_ITS ---
STUDY: RENAL ULTRASOUND - COMPLETE REASON FOR EXAM: Male, 73 years old. Acute renal failure TECHNIQUE: Ultrasound evaluation of the kidneys was performed with real-time and static orta-scale imaging. COMPARISON: None. FINDINGS: RIGHT KIDNEY: Normal location of the right kidney, which is normal in size. The right kidney measures 11.9 x 6.2 x 6.2 cm. There is a normal cortex of the right kidney. The renal cortex measures 1.1 cm. There is no right renal mass or cyst. There are no right renal calculi. There is no right hydronephrosis. DISTAL RIGHT URETER: There is non-visualization of the distal right ureter. LEFT KIDNEY: Normal location of the left kidney, which is slightly large in size. The left kidney measures 14.3 x 5.8 x 7.0 cm. There is a normal cortex of the left kidney. The renal cortex measures 1.3 cm. There is no left renal mass or cyst. There are no left renal calculi. There is no left hydronephrosis. DISTAL LEFT URETER: There is non-visualization of the distal left ureter. BLADDER: The urinary bladder decompressed with a Worrell catheter. US/Kidney and Bladder IMPRESSION: Normal ultrasound of the kidneys. Electronically Signed: Walker Abreu DO at 23:54 EDT Tel [phone], Service support ,
--- NOTE | 2019-02-05 15:03 | ECHOD_ITS ---
Reason For Study: Pulm. HTN Procedure This was a 2D Doppler, Color Flow transthoracic echocardiogram. The study was technically difficult. Definity deferred due to pulmonary pressure. Exam performed portable in patient room. Left Ventricle Normal size and thickness. The estimated ejection fraction is 65 %. Stage 2 diastolic dysfunction. No regional wall motion abnormalities noted. Right Ventricle Mildly dilated right ventricle. Normal systolic function. Atria Normal left atrium. Normal right atrium. Normal atrial septum. Mitral Valve The mitral valve is structurally normal. No prolapse or stenosis seen. Tricuspid Valve Normal tricuspid valve. Mild to moderate (1-2+) tricuspid valve insufficiency. Right ventricular systolic pressure estimated to be 58 mmHg. Moderate pulmonary hypertension. Aortic Valve Trisinus/trileaflet aortic valve. Mild diffuse aortic valve thickening. There is no aortic stenosis. Pulmonic Valve Normal pulmonic valve. Great Vessels Normal aortic root. Normal arch. The inferior vena cava is dilated. No collapse of the inferior vena cava. Pericardium/Pleural No pericardial effusion. MMode/2D Measurements & Calculations LVIDd: 5.1 cm IVSd: 0.99 cm Ao root diam: 3.1 cm LVIDs: 3.0 cm LVPWd: 1.1 cm RVDd: 3.6 cm FS: 40.1 % LA dimension(2D): 3.7 cm Doppler Measurements & Calculations MV E max petey: 136.2 cm/sec Lat Peak E' Petey: 4.8 cm/sec Med Peak E' Petey: 3.2 cm/sec MV A max petey: 96.6 cm/sec E/E' lat: 28.5 E/E' med: 43.0 MV E/A: 1.4 Ao V2 max: 190.1 cm/sec LV V1 max: 117.9 cm/sec PA V2 max: 139.8 cm/sec Ao max P.5 mmHg LV V1 max P.6 mmHg TR max petey: 362.9 cm/sec TR max P.7 mmHg Interpretation Summary The estimated ejection fraction is 65 %. Stage 2 diastolic dysfunction. Mildly dilated right ventricle. Mild to moderate (1-2+) tricuspid valve insufficiency. Right ventricular systolic pressure estimated to be 58 mmHg, but may be underestimated. At least moderate pulmonary hypertension, but may be underestimated. There is no comparison study available. Ordering Physician: CAPRICE Polo Referring Physician: Ricardo Lowery Performed By: Lee Ann Cardenas RDCS
[2019-02-05 15:56] LABS: Bedside Glucose 100 mg/dL (70-110)
[2019-02-05 16:04] LABS: Hematocrit 26.6 % (40-54); Hemoglobin 7.7 g/dl (13.0-16.5)
[2019-02-05 16:33] LABS: BNP,B-Type NATRIURETIC PEPTIDE 120.3 pg/mL (0-100)
[2019-02-05 16:36] LABS: Ferritin 182 ng/mL (26-388); Iron 29 ug/dL (65-175); Iron Binding Capacity,Total 202 ug/dL (250-450); PERCENT IRON SATURATION 14.4 % (15.0-55.0)
--- NOTE | 2019-02-05 17:41 | NURSING ---
pt refusing to have iv placed. states he has been stuck 100s of times already. patient educated on the importance of having iv access and the need of iv medication, still he refuses. pt is very loud and angry.
[2019-02-05 18:16] LABS: Mucous, Urine 0 SEEN /hpf (<or=2+); Squamous Epithelial Cells - UA 0 SEEN /hpf (0-5)
[2019-02-05 18:18] LABS: Color, Urine Yellow (Yellow); Glucose, Dipstick Normal (Normal); Ketone-Dipstick Negative (Negative); Leukocyte Esterase-Dipstick 100 /ul (Negative); Nitrite-Dipstick Negative (Negative); Occult Blood-Urine 25 /ul (Negative); Protein-Dipstick 30 mg/dl (Negative); Urine Bilirubin Dipstick Negative (Negative); Urine Clarity Clear (Clear); Urine Urobilinogen Normal (Normal)
[2019-02-05 18:23] LABS: Urine Sodium 41 mmol/L (Not Establ.)
[2019-02-05 18:26] LABS: Bacteria RARE /hpf (None Seen); Red Blood Cells-Urine 0-5 SEEN /hpf (0-5); White Blood Cells 10-25 SEEN /hpf (0-5)
[2019-02-05 21:28] LABS: Hematocrit 26.3 % (40-54); Hemoglobin 7.6 g/dl (13.0-16.5)
[2019-02-05] MEDS: Acetaminophen 500 MG Tablet 1000 MG PO (21:55)
[2019-02-05] MEDS: Docusate Sodium 100 MG Capsule PO (21:57)
[2019-02-05 22:21] LABS: Bedside Glucose 131 mg/dL (70-110)
[2019-02-06] VITALS (8 sets, daily range): BP systolic 157–169; BP diastolic 47–58; PULSE 58–71; RESP 18; TEMP 36.7–37; O2SAT 88–98
--- NOTE | 2019-02-06 01:29 | CPS ---
pt refuses to wear bipap
[2019-02-06 05:39] LABS: ALB/GLOB Ratio 0.5 RATIO (0.9-2.4); AST(SGOT) 23 U/L (15-37); Alanine Aminotransfer ALT/SGPT 9 U/L (16-61); Albumin, Serum 2.2 g/dL (3.2-5.0); Alkaline Phosphatase 76 U/L (45-117); Anion Gap 6 (5-15); BUN 56 mg/dL (7-18); BUN/Creat Ratio 19.1 RATIO (10-20); Calcium,Total 8.3 mg/dL (8.5-10.1); Chloride 112 mmol/L (98-107); Creatinine, Serum 2.93 mg/dL (0.70-1.30); EST Glomerular Filtration Rate 23 mL/min (>60); Est Glom Filt Rate - Afr Amer 27 mL/min (>60); Estimated Creatinine Clearance 22.05 ml/min; Globulin 4.6 g/dL (2.2-4.2); Glucose 109 mg/dL (74-106); Potassium 5.8 mmol/L (3.5-5.1); Protein, Total 6.8 g/dL (6.4-8.2); Sodium Level 140 mmol/L (136-145)
[2019-02-06] MEDS: Acetaminophen 500 MG Tablet 1000 MG PO (06:35)
[2019-02-06 06:40] LABS: Bedside Glucose 107 mg/dL (70-110)
--- NOTE | 2019-02-06 10:24 | PCM.CONS.R ---
Problem List (1) Acute kidney injury superimposed on chronic kidney disease Status: Chronic (2) Hyperkalemia Status: Acute Consultation - Renal PCP/ Referring MD: Requesting physician: [] Primary care physician: No Primary Care Phys - History of Present Illness History of Present Illness: The patient is a 73 year old M .Patient was sent from another hospital due to acute urinary retention needed urologist to place a Monroy catheter. Patient initially was sent from correction To outside hospital for change in the mental status along with agitation. Patient was found to have hypoglycemia. Patient was given IV glucose but he remains confused. Bladder scan showed large urine in the bladder. Monroy catheter placement was not successful in the other hospital. Dr. Rowley accepted the patient and patient was transferred to [facility]. Patient was treated recently for cellulitis and UTI with Bactrim and fluconazole. Chest x-ray here in the emergency room shows possible right lower lobe infiltrate with increased leukocytosis. Patient was started on antibiotics. also ammonia level was found to be high at 60 and patient was treated with lactulose Renal team was consulted for ARMIDA on CKD. Cr increased to 3.6 mg/dl from baseline 1.5-2.0 mg/dL. Also K was elevated at presentation with initial level > 7.5 Kidney function improved ith with placing monroy cath.Hyperkalemia was treated medically with kayexalate, D50 and insulin and albuterol along with Ca gluconate. K level today 5.8 ROS: 12 systems review is negative today. Pt is asking to leave the hospital - Allergies Allergies: Allergies No Known Allergies Allergy (Verified 02/05/19 00:23) - Current Medications Current Medications: Current Medications Acetaminophen (Tylenol) 1,000 mg PO Q8H PRN PRN PRN Reason: PAIN Last Admin: 02/06/19 06:35 Dose: 1,000 mg Atenolol (Tenormin (Beta Mary)) 25 mg PO DAILY ELIAZAR Dextrose (D50w Syringe) 0 gm IV X1 PRN; Protocol PRN Reason: Hypoglycemia Docusate Sodium (Colace) 100 mg PO BID ELIAZAR Last Admin: 02/05/19 21:57 Dose: 100 mg Ferrous Sulfate (Ferrous Sulfate) 325 mg PO 1200,1700 ELIAZAR Fluconazole (Diflucan) 200 mg PO DAILY ELIAZAR Folic Acid (Folic Acid) 1 mg PO DAILY@0800 ELIAZAR Glucagon () 1 mg IM .X1 PRN PRN Reason: Hypoglycemia Heparin Sodium (Porcine) (Heparin Na) 5,000 unit SC Q12 [facility] Last Admin: 02/05/19 21:57 Dose: 5,000 unit Insulin Human Lispro (Humalog Kwikpen (Bkc)) 0 unit SC ACHS [facility]; Protocol Last Admin: 02/06/19 07:32 Dose: Not Given Lactulose (Chronulac, Cephulac) 20 gm PO BID [facility] Last Admin: 02/05/19 22:03 Dose: Not Given Magnesium Hydroxide (Milk Of Magnesia) 30 ml PO DAILY PRN PRN PRN Reason: Constipation Ondansetron HCl (Zofran) 4 mg IV Q8H PRN PRN PRN Reason: NAUSEA Pantoprazole Sodium (Protonix) 20 mg PO DAILY [facility] Sodium Chloride () 5 - 15 ml IV UD PRN PRN Reason: SALINE FLUSH Tamsulosin HCl (Flomax) 0.4 mg PO DAILY [facility] - Past Medical History Past Medical History (Chronic Problems): Chronic Problems (Last Updated 02/05/19 @ 05:01 by Ricardo Lowery MD) Acute kidney injury superimposed on chronic kidney disease (Chronic) - Past Surgical History Surgical History: - - Unable to obtain at this time because of acute encephalopathy. - Social History Smoking Status: Unknown if ever smoked Alcohol: None Drugs: - - Unable to obtain at this time because of acute encephalopathy. - Family History Paternal History Items: - - Unable to obtain at this time because of acute encephalopathy. Maternal History Items: - - Unable to obtain at this time because of acute encephalopathy. Patient Problems: Active and Suspected Problems (Last Updated 02/05/19 @ 05:01 by Ricardo Lowery MD) Acute encephalopathy (Acute) Hyperkalemia (Acute) - Physical Exam General: Alert, Oriented x3 HEENT: Atraumatic Oral: Moist Mucosa Neck: Supple, No JVD Lungs: Clear to auscultation, Normal air movement, No rhonchi Cardiovascular: Regular rate, Regular Rhythm, Normal S1, Normal S2 Abdomen: Bowel Sounds Present, Soft, Non Tender, Distended Extremities: Edema - Bilateral lower extremities chronic changes from chronic edema +1 Musculoskeletal: No Muscle Wasting Neurological: Cranial nerves II-XII grossly intact, Neuro grossly intact Psych/Mental Status: Appropriate Vital Signs Temp Pulse Resp BP Pulse Ox 98.6 F 58 L 18 164/57 H 88 02/06/19 03:33 02/06/19 07:11 02/06/19 03:33 02/06/19 03:33 02/06/19 07:39 Oxygen Flow Rate (L/min) 5 Oxygen Delivery Method Room Air Weight: 137 kg Body Mass Index (BMI) 45.9 Intake and Output for Last 24 Hours 02/04/19 02/05/19 02/06/19 23:59 23:59 23:59 Intake Total 1897 / 1897 360 / 360 Output Total 1475 / 1475 625 / 625 Balance 422 / 422 -265 / -265 Microbiology Past 72 Hours 02/05/19 02:08 Respiratory Panel (PCR) - Final Mucosa - Nasopharyngeal Laboratory Tests Past 24 Hrs 02/05/19 02/05/19 02/05/19 01:25 11:45 11:45 Hgb Hct Diff Path Review Reviewed Sodium 139 Potassium 5.4 H Chloride 110 H Carbon Dioxide 23.0 Anion Gap 6 BUN 55 H Creatinine 3.36 H Estim Creat Clear Calc 19.23 Est GFR (MDRD) Af Amer 23 L Est GFR (MDRD) Non-Af 19 L BUN/Creatinine Ratio 16.4 Glucose 96 Calcium 8.4 L Iron 29 L TIBC 202 L Iron Saturation 14.4 L Ferritin 182 Total Bilirubin AST ALT Alkaline Phosphatase Ammonia B-Natriuretic Peptide Total Protein Albumin Globulin Albumin/Globulin Ratio Folate 2.10 L Urine Color Urine Clarity Urine pH Ur Specific [place] Urine Protein Urine Glucose (UA) Urine Ketones Urine Occult Blood Urine Nitrite Urine Bilirubin Urine Urobilinogen Ur Leukocyte Esterase Urine RBC Urine WBC Ur Squamous Epith Cells Urine Bacteria Urine Mucus Ur Random Sodium Urine Creatinine 02/05/19 02/05/19 02/05/19 15:15 15:15 15:15 Hgb Hct Diff Path Review Sodium Potassium Chloride Carbon Dioxide Anion Gap BUN Creatinine Estim Creat Clear Calc Est GFR (MDRD) Af Amer Est GFR (MDRD) Non-Af BUN/Creatinine Ratio Glucose Calcium Iron TIBC Iron Saturation Ferritin Total Bilirubin AST ALT Alkaline Phosphatase Ammonia B-Natriuretic Peptide Total Protein Albumin Globulin Albumin/Globulin Ratio Folate Urine Color Yellow Urine Clarity Clear Urine pH 5.0 Ur Specific [place] 1.020 Urine Protein 30 H Urine Glucose (UA) Normal Urine Ketones Negative Urine Occult Blood 25 H Urine Nitrite Negative Urine Bilirubin Negative Urine Urobilinogen Normal Ur Leukocyte Esterase 100 H Urine RBC 0-5 SEEN Urine WBC 10-25 SEEN Ur Squamous Epith Cells 0 SEEN Urine Bacteria RARE Urine Mucus 0 SEEN Ur Random Sodium 41 Urine Creatinine 172.00 02/05/19 02/05/19 02/05/19 15:45 15:45 15:45 Hgb 7.7 L Hct 26.6 L Diff Path Review Sodium Potassium Chloride Carbon Dioxide Anion Gap BUN Creatinine Estim Creat Clear Calc Est GFR (MDRD) Af Amer Est GFR (MDRD) Non-Af BUN/Creatinine Ratio Glucose Calcium Iron TIBC Iron Saturation Ferritin Total Bilirubin AST ALT Alkaline Phosphatase Ammonia 36.0 H B-Natriuretic Peptide 120.3 H Total Protein Albumin Globulin Albumin/Globulin Ratio Folate Urine Color Urine Clarity Urine pH Ur Specific [place] Urine Protein Urine Glucose (UA) Urine Ketones Urine Occult Blood Urine Nitrite Urine Bilirubin Urine Urobilinogen Ur Leukocyte Esterase Urine RBC Urine WBC Ur Squamous Epith Cells Urine Bacteria Urine Mucus Ur Random Sodium Urine Creatinine 02/05/19 02/06/19 02/06/19 21:16 05:00 05:00 Hgb 7.6 L Hct 26.3 L Diff Path Review Sodium 140 Potassium 5.8 H Chloride 112 H Carbon Dioxide 22.0 Anion Gap 6 BUN 56 H Creatinine 2.93 H Estim Creat Clear Calc 22.05 Est GFR (MDRD) Af Amer 27 L Est GFR (MDRD) Non-Af 23 L BUN/Creatinine Ratio 19.1 Glucose 109 H Calcium 8.3 L Iron TIBC Iron Saturation Ferritin Total Bilirubin 0.20 AST 23 ALT 9 L Alkaline Phosphatase 76 Ammonia 36.0 H B-Natriuretic Peptide Total Protein 6.8 Albumin 2.2 L Globulin 4.6 H Albumin/Globulin Ratio 0.5 L Folate Urine Color Urine Clarity Urine pH Ur Specific [place] Urine Protein Urine Glucose (UA) Urine Ketones Urine Occult Blood Urine Nitrite Urine Bilirubin Urine Urobilinogen Ur Leukocyte Esterase Urine RBC Urine WBC Ur Squamous Epith Cells Urine Bacteria Urine Mucus Ur Random Sodium Urine Creatinine POC Glucose 02/06/19 02/05/19 02/05/19 06:37 21:59 15:47 POC Glucose 107 131 H 100 02/05/19 02/04/19 11:51 22:31 POC Glucose 88 90 Assessment/Plan All Active Problems (Last Updated 02/05/19 @ 05:01 by Ricardo Lowery MD) Acute encephalopathy (Acute) Hyperkalemia (Acute) 1-acute kidney injury and chronic kidney disease stage III. Baseline creatinine seems around 1.5-2 mg a deciliter. Patient could have diabetic nephropathy at baseline. Patient denied following with a it project lead before Acute kidney injury is most probably from bladder outlet obstruction from BPH. Patient also was on Bactrim for cellulitis which also could cause AIN. UA showed 30 protein WBCs 10-25 and leukocyte esterase 100. I will order urine eosinophil along with urine electrolytes Kidney function is improving. No need for kidney biopsy. Last creatinine trend 3.3->2.9 milligrams per deciliter. Nonoliguric. No need for renal replacement therapy Acute urinary retention treatment as per the urology team. Avoid nephrotoxic 2-hyperkalemia: From acute kidney injury. Initial potassium level was 7.8 which was treated medically. Potassium level 5.8 today. Please give the patient Kayexalate 30 g p.o. daily and repeat potassium level later today. 3-acute urinary retention. Monroy catheter in place now which is draining urine. Will defer management to the urology team. 4-change in mental status. From acute kidney injury, high ammonia level. Improved. Thank you for the consult. Renal team will continue to follow. Please call with any question at #[phone] Plan of care was discussed with Dr. Jamari Pineda MD
--- NOTE | 2019-02-06 10:30 | CON.PCM_ITS ---
Problem List (1) Acute kidney injury superimposed on chronic kidney disease Status: Chronic (2) Hyperkalemia Status: Acute Consultation - Renal PCP/ Referring MD: Requesting physician: [] Primary care physician: No Primary Care Phys - History of Present Illness History of Present Illness: The patient is a 73 year old M .Patient was sent from another hospital due to acute urinary retention needed urologist to place a Monroy catheter. Patient initially was sent from group home To outside hospital for change in the mental status along with agitation. Patient was found to have hypoglycemia. Patient was given IV glucose but he remains confused. Bladder scan showed large urine in the bladder. Monroy catheter placement was not successful in the other hospital. Dr. Rowley accepted the patient and patient was transferred to [facility]. Patient was treated recently for cellulitis and UTI with Bactrim and fluconazole. Chest x-ray here in the emergency room shows possible right lower lobe infiltrate with increased leukocytosis. Patient was started on antibiotics. also ammonia level was found to be high at 60 and patient was treated with lactulose Renal team was consulted for ARMIDA on CKD. Cr increased to 3.6 mg/dl from baseline 1.5-2.0 mg/dL. Also K was elevated at presentation with initial level > 7.5 Kidney function improved ith with placing monroy cath.Hyperkalemia was treated medically with kayexalate, D50 and insulin and albuterol along with Ca gluconate. K level today 5.8 ROS: 12 systems review is negative today. Pt is asking to leave the hospital - Allergies Allergies: Allergies No Known Allergies Allergy (Verified 02/05/19 00:23) - Current Medications Current Medications: Current Medications Acetaminophen (Tylenol) 1,000 mg PO Q8H PRN PRN PRN Reason: PAIN Last Admin: 02/06/19 06:35 Dose: 1,000 mg Atenolol (Tenormin (Beta Mary)) 25 mg PO DAILY ELIAZAR Dextrose (D50w Syringe) 0 gm IV X1 PRN; Protocol PRN Reason: Hypoglycemia Docusate Sodium (Colace) 100 mg PO BID ELIAZAR Last Admin: 02/05/19 21:57 Dose: 100 mg Ferrous Sulfate (Ferrous Sulfate) 325 mg PO 1200,1700 ELIAZAR Fluconazole (Diflucan) 200 mg PO DAILY ELIAZAR Folic Acid (Folic Acid) 1 mg PO DAILY@0800 ELIAZAR Glucagon () 1 mg IM .X1 PRN PRN Reason: Hypoglycemia Heparin Sodium (Porcine) (Heparin Na) 5,000 unit SC Q12 [facility] Last Admin: 02/05/19 21:57 Dose: 5,000 unit Insulin Human Lispro (Humalog Kwikpen (Bkc)) 0 unit SC ACHS [facility]; Protocol Last Admin: 02/06/19 07:32 Dose: Not Given Lactulose (Chronulac, Cephulac) 20 gm PO BID [facility] Last Admin: 02/05/19 22:03 Dose: Not Given Magnesium Hydroxide (Milk Of Magnesia) 30 ml PO DAILY PRN PRN PRN Reason: Constipation Ondansetron HCl (Zofran) 4 mg IV Q8H PRN PRN PRN Reason: NAUSEA Pantoprazole Sodium (Protonix) 20 mg PO DAILY [facility] Sodium Chloride () 5 - 15 ml IV UD PRN PRN Reason: SALINE FLUSH Tamsulosin HCl (Flomax) 0.4 mg PO DAILY [facility] - Past Medical History Past Medical History (Chronic Problems): Chronic Problems (Last Updated 02/05/19 @ 05:01 by Ricardo Lowery MD) Acute kidney injury superimposed on chronic kidney disease (Chronic) - Past Surgical History Surgical History: - - Unable to obtain at this time because of acute encephalopathy. - Social History Smoking Status: Unknown if ever smoked Alcohol: None Drugs: - - Unable to obtain at this time because of acute encephalopathy. - Family History Paternal History Items: - - Unable to obtain at this time because of acute encephalopathy. Maternal History Items: - - Unable to obtain at this time because of acute encephalopathy. Patient Problems: Active and Suspected Problems (Last Updated 02/05/19 @ 05:01 by Ricardo Lowery MD) Acute encephalopathy (Acute) Hyperkalemia (Acute) - Physical Exam General: Alert, Oriented x3 HEENT: Atraumatic Oral: Moist Mucosa Neck: Supple, No JVD Lungs: Clear to auscultation, Normal air movement, No rhonchi Cardiovascular: Regular rate, Regular Rhythm, Normal S1, Normal S2 Abdomen: Bowel Sounds Present, Soft, Non Tender, Distended Extremities: Edema - Bilateral lower extremities chronic changes from chronic edema +1 Musculoskeletal: No Muscle Wasting Neurological: Cranial nerves II-XII grossly intact, Neuro grossly intact Psych/Mental Status: Appropriate Vital Signs Temp Pulse Resp BP Pulse Ox 98.6 F 58 L 18 164/57 H 88 02/06/19 03:33 02/06/19 07:11 02/06/19 03:33 02/06/19 03:33 02/06/19 07:39 Oxygen Flow Rate (L/min) 5 Oxygen Delivery Method Room Air Weight: 137 kg Body Mass Index (BMI) 45.9 Intake and Output for Last 24 Hours 02/04/19 02/05/19 02/06/19 23:59 23:59 23:59 Intake Total 1897 / 1897 360 / 360 Output Total 1475 / 1475 625 / 625 Balance 422 / 422 -265 / -265 Microbiology Past 72 Hours 02/05/19 02:08 Respiratory Panel (PCR) - Final Mucosa - Nasopharyngeal Laboratory Tests Past 24 Hrs 02/05/19 02/05/19 02/05/19 01:25 11:45 11:45 Hgb Hct Diff Path Review Reviewed Sodium 139 Potassium 5.4 H Chloride 110 H Carbon Dioxide 23.0 Anion Gap 6 BUN 55 H Creatinine 3.36 H Estim Creat Clear Calc 19.23 Est GFR (MDRD) Af Amer 23 L Est GFR (MDRD) Non-Af 19 L BUN/Creatinine Ratio 16.4 Glucose 96 Calcium 8.4 L Iron 29 L TIBC 202 L Iron Saturation 14.4 L Ferritin 182 Total Bilirubin AST ALT Alkaline Phosphatase Ammonia B-Natriuretic Peptide Total Protein Albumin Globulin Albumin/Globulin Ratio Folate 2.10 L Urine Color Urine Clarity Urine pH Ur Specific [place] Urine Protein Urine Glucose (UA) Urine Ketones Urine Occult Blood Urine Nitrite Urine Bilirubin Urine Urobilinogen Ur Leukocyte Esterase Urine RBC Urine WBC Ur Squamous Epith Cells Urine Bacteria Urine Mucus Ur Random Sodium Urine Creatinine 02/05/19 02/05/19 02/05/19 15:15 15:15 15:15 Hgb Hct Diff Path Review Sodium Potassium Chloride Carbon Dioxide Anion Gap BUN Creatinine Estim Creat Clear Calc Est GFR (MDRD) Af Amer Est GFR (MDRD) Non-Af BUN/Creatinine Ratio Glucose Calcium Iron TIBC Iron Saturation Ferritin Total Bilirubin AST ALT Alkaline Phosphatase Ammonia B-Natriuretic Peptide Total Protein Albumin Globulin Albumin/Globulin Ratio Folate Urine Color Yellow Urine Clarity Clear Urine pH 5.0 Ur Specific [place] 1.020 Urine Protein 30 H Urine Glucose (UA) Normal Urine Ketones Negative Urine Occult Blood 25 H Urine Nitrite Negative Urine Bilirubin Negative Urine Urobilinogen Normal Ur Leukocyte Esterase 100 H Urine RBC 0-5 SEEN Urine WBC 10-25 SEEN Ur Squamous Epith Cells 0 SEEN Urine Bacteria RARE Urine Mucus 0 SEEN Ur Random Sodium 41 Urine Creatinine 172.00 02/05/19 02/05/19 02/05/19 15:45 15:45 15:45 Hgb 7.7 L Hct 26.6 L Diff Path Review Sodium Potassium Chloride Carbon Dioxide Anion Gap BUN Creatinine Estim Creat Clear Calc Est GFR (MDRD) Af Amer Est GFR (MDRD) Non-Af BUN/Creatinine Ratio Glucose Calcium Iron TIBC Iron Saturation Ferritin Total Bilirubin AST ALT Alkaline Phosphatase Ammonia 36.0 H B-Natriuretic Peptide 120.3 H Total Protein Albumin Globulin Albumin/Globulin Ratio Folate Urine Color Urine Clarity Urine pH Ur Specific [place] Urine Protein Urine Glucose (UA) Urine Ketones Urine Occult Blood Urine Nitrite Urine Bilirubin Urine Urobilinogen Ur Leukocyte Esterase Urine RBC Urine WBC Ur Squamous Epith Cells Urine Bacteria Urine Mucus Ur Random Sodium Urine Creatinine 02/05/19 02/06/19 02/06/19 21:16 05:00 05:00 Hgb 7.6 L Hct 26.3 L Diff Path Review Sodium 140 Potassium 5.8 H Chloride 112 H Carbon Dioxide 22.0 Anion Gap 6 BUN 56 H Creatinine 2.93 H Estim Creat Clear Calc 22.05 Est GFR (MDRD) Af Amer 27 L Est GFR (MDRD) Non-Af 23 L BUN/Creatinine Ratio 19.1 Glucose 109 H Calcium 8.3 L Iron TIBC Iron Saturation Ferritin Total Bilirubin 0.20 AST 23 ALT 9 L Alkaline Phosphatase 76 Ammonia 36.0 H B-Natriuretic Peptide Total Protein 6.8 Albumin 2.2 L Globulin 4.6 H Albumin/Globulin Ratio 0.5 L Folate Urine Color Urine Clarity Urine pH Ur Specific [place] Urine Protein Urine Glucose (UA) Urine Ketones Urine Occult Blood Urine Nitrite Urine Bilirubin Urine Urobilinogen Ur Leukocyte Esterase Urine RBC Urine WBC Ur Squamous Epith Cells Urine Bacteria Urine Mucus Ur Random Sodium Urine Creatinine POC Glucose 02/06/19 02/05/19 02/05/19 06:37 21:59 15:47 POC Glucose 107 131 H 100 02/05/19 02/04/19 11:51 22:31 POC Glucose 88 90 Assessment/Plan All Active Problems (Last Updated 02/05/19 @ 05:01 by Ricardo Lowery MD) Acute encephalopathy (Acute) Hyperkalemia (Acute) 1-acute kidney injury and chronic kidney disease stage III. Baseline creatinine seems around 1.5-2 mg a deciliter. Patient could have diabetic nephropathy at baseline. Patient denied following with a director of physiotherapy services before Acute kidney injury is most probably from bladder outlet obstruction from BPH. Patient also was on Bactrim for cellulitis which also could cause AIN. UA showed 30 protein WBCs 10-25 and leukocyte esterase 100. I will order urine eosinophil along with urine electrolytes Kidney function is improving. No need for kidney biopsy. Last creatinine trend 3.3->2.9 milligrams per deciliter. Nonoliguric. No need for renal replacement therapy Acute urinary retention treatment as per the urology team. Avoid nephrotoxic 2-hyperkalemia: From acute kidney injury. Initial potassium level was 7.8 which was treated medically. Potassium level 5.8 today. Please give the patient Kayexalate 30 g p.o. daily and repeat potassium level later today. 3-acute urinary retention. Monroy catheter in place now which is draining urine. Will defer management to the urology team. 4-change in mental status. From acute kidney injury, high ammonia level. Improved. Thank you for the consult. Renal team will continue to follow. Please call with any question at #[phone] Plan of care was discussed with Dr. Jamari Pineda MD
[2019-02-06] MEDS: Tamsulosin HCl 0.4 MG Capsule PO (10:32)
[2019-02-06] MEDS: Sodium Polystyrene Sulfonate 15 GM/60 ML UDC 30 GM PO (10:32)
[2019-02-06] MEDS: Lactulose 20 GM/30 ML UDC PO (10:32)
[2019-02-06] MEDS: Pantoprazole Sodium 20 MG Tablet PO (10:32)
[2019-02-06] MEDS: Ferrous Sulfate 325 MG Tablet PO (10:32)
[2019-02-06] MEDS: Folic Acid 1 MG Tablet PO (10:32)
[2019-02-06] MEDS: Fluconazole 100 MG Tablet 200 MG PO (10:32)
[2019-02-06] MEDS: Atenolol 25 MG Tablet PO (10:32)
[2019-02-06] MEDS: Docusate Sodium 100 MG Capsule PO (10:32)
--- NOTE | 2019-02-06 11:05 | TREXTCA.CO_ITS ---
Addendum entered and electronically signed by CHANDLER Perdomo 02/06/19 15:45: Code Visit Please check BMP at the correction the morning after discharge. Original Note: - Diet 02/05/19 11:40 Diet: Carbohydrate Controlled Is pt able to select menu?: No - Routine Orders/Code Status Suppository Type: Dulcolax 10mg Suppository Frequency: Daily PRN O2 Frequency: PRN Keep PO Greater than or Equal to (%): 89 Routine Lab Work: CBC - 1 week, BMP - 3 days Code Status: Full Code - Wound(s) RIGHT FOREARM Wound Type: Skin Tear COCCYX Wound Type: Pressure Injury - Therapies Physical Therapy: Eval and Treat Occupational Therapy: Eval and Treat - Problem/Diagnosis (1) Acute encephalopathy Status: Acute Current Visit: Yes (2) Hyperammonemia Status: Acute Current Visit: Yes (3) Obstructive uropathy Status: Acute Current Visit: Yes (4) Acute kidney injury superimposed on chronic kidney disease Status: Chronic Current Visit: Yes (5) Folate deficiency anemia Status: Chronic Current Visit: Yes (6) Venous stasis dermatitis Status: Chronic Current Visit: Yes (7) HTN (hypertension) Status: Chronic Current Visit: Yes (8) Morbid obesity Status: Chronic Current Visit: Yes (9) T2DM (type 2 diabetes mellitus) Status: Chronic Current Visit: Yes (10) Hyperkalemia Status: Acute Current Visit: Yes - Allergies/Procedures Done in Hospital Allergies/Adverse Reactions: Allergies No Known Allergies Allergy (Verified 02/05/19 00:23) - Type of Care/Length of Stay Estimated LOS: Convalescent Care Less Than 30 days Type of Care Needed: Skilled Rehab Potential: Fair Prognosis: Fair - Additional Orders/Day of Discharge Day of Discharge: 02/06/19 - Dietary and Speech Recommendations Dietitian Recommendations/Changes: Rec cont carb controlled diet as indicated. Recommend Ar 1 pkt PO BID for wound healing -- order from pharmacy. - Follow Up Care Primary Care Physician: Care Physician,No Primary [Primary Care Provider] - Please follow up with your Primary Care Physician in: 2 weeks Please Follow Up With: Tyrone Abebe MD When: 1-2 weeks Please Follow Up With: Lise Pineda MD When: 2 weeks
--- NOTE | 2019-02-06 11:12 | CASEMGMT ---
Addendum entered by Bia Sanz 02/06/19 11:32: NORIS called Ying at [facility] and let her know patient may be d/c later today. NORIS explained it is dependent on his labs. Bia AGARWAL Original Note: Patient is possibly going to be discharged back to [facility] today. He is having labs drawn at 2p and if his results are ok he will be discharged. SW spoke with patient and let him know he may be discharged back to [facility]. SW asked if has anyone that could transport him back. He said he doesn't even know whereabouts of his family. SW asked him if SW could call his nephew. He said that is fine. SW called patient's nephew, Lawson. SW let him know patient may be discharged back to [facility] as long as his labs are okay. NORIS told him this probably won't be until around 3p. He asked that someone call him when ready and he will get clothes for patient at [facility] and then come and pick him up if he has to. NORIS told him that van transport is not covered by insurance and it is around a $45 base fee and then a $4.50 per mile charge. NORIS told him someone will call him when labs are back and patient is ready to go. NORIS will pass along to RN. Bia AGARWAL
[2019-02-06 11:18] LABS: Urine Sodium 48 mmol/L (Not Establ.)
[2019-02-06 11:41] LABS: Bedside Glucose 114 mg/dL (70-110)
--- NOTE | 2019-02-06 12:42 | PHA.DC.MR ---
Pharmacy Service has performed discharge medication reconciliation for this patient upon transfer to [facility]. The patient's discharge medication list was reviewed for discrepancies and discrepancies were resolved. Home Medications Atenolol [Tenormin (beta mirza)] 50 mg PO DAILY 02/04/19 Cholecalciferol (VIT D3) [Vitamin D3] 1,000 unit PO DAILY 02/04/19 Docusate Sodium [Colace] 100 mg PO BID 02/04/19 Fluconazole [Diflucan] 200 mg PO DAILY 02/04/19 Insulin NPH Human Isophane [Novolin N] 40 unit SQ BID 02/04/19 Omeprazole [Prilosec] 20 mg PO DAILY 02/04/19 Oxybutynin Chloride [Ditropan Xl] 10 mg PO DAILY 02/04/19 Tamsulosin HCl [Flomax] 0.4 mg PO DAILY 02/04/19 Topiramate [Topamax] 100 mg PO DAILY 02/04/19 Acetaminophen [Tylenol] 1,000 mg PO Q8H PRN PRN tablet 02/06/19 Ferrous Sulfate 325 mg PO 1200,1700 tablet 02/06/19 Folic Acid 1 mg PO DAILY@0800 tablet 02/06/19 Lactulose [Chronulac] 20 gm PO BID udc 02/06/19 Magnesium Hydroxide [Milk Of Magnesia] 30 ml PO DAILY PRN PRN udc 02/06/19 hydrALAZINE [Apresoline] 10 mg PO TID #90 tablet 02/06/19
[2019-02-06] MEDS: hydrALAZINE 10 MG Tablet PO (13:28)
--- NOTE | 2019-02-06 14:07 | CASEMGMT ---
NORIS faxed orders to [facility]. [facility] [employer]
--- NOTE | 2019-02-06 14:42 | PCM.DC.SUM ---
<Aden Ray - Last Filed: 02/06/19 14:42> Discharge Date and Diagnosis - Problem List Patient Problems: Active and Suspected Problems (Last Updated 02/05/19 @ 05:01 by Ricardo Lowery MD) Acute encephalopathy (Acute) Hyperkalemia (Acute) Obstructive uropathy (Acute) Hyperammonemia (Acute) Date of Admission: 02/04/19 Date of Discharge: 02/06/19 - Primary Discharge Diagnosis Active and Suspected Problems (Last Updated 02/05/19 @ 05:01 by Ricardo Lowery MD) Acute encephalopathy (Acute), likely 2/2 ARMIDA ARMIDA Hyperkalemia (Acute) Obstructive uropathy (Acute) Hyperammonemia (Acute) Folic acid def. anemia HTN - Secondary Discharge Diagnosis Chronic Problems (Last Updated 02/05/19 @ 05:01 by Ricardo Lowery MD) Acute kidney injury superimposed on chronic kidney disease (Chronic) Folate deficiency anemia (Chronic) Venous stasis dermatitis (Chronic) HTN (hypertension) (Chronic) Morbid obesity (Chronic) T2DM (type 2 diabetes mellitus) (Chronic) Hospital Course and Treatment Imaging Results: Echo: Interpretation Summary The estimated ejection fraction is 65 %. Stage 2 diastolic dysfunction. Mildly dilated right ventricle. Mild to moderate (1-2+) tricuspid valve insufficiency. Right ventricular systolic pressure estimated to be 58 mmHg, but may be underestimated. At least moderate pulmonary hypertension, but may be underestimated. There is no comparison study available. RAD/Chest 1 View (Portable) IMPRESSION: Cardiomegaly. CHF. US/Kidney and Bladder IMPRESSION: Normal ultrasound of the kidneys. Consults: Urology - [facility] Operations: None Procedures: 2-D Echocardiogram Summary of Care Provided: Hospital course: The patient is a 73 year old M with past medical history as above who was sent from [facility] to the ED at [facility], subsequently transferred to [facility] with increased confusion, ARMIDA, bradycardia, and obstructive uropathy, and CO2 narcosis. He had a severe phimosis. He also had elevated potassium. Urology was consulted who cut the phimosis and placed a Worrell catheter. Nephrology was consulted given his renal failure. He had his nephrotoxic agents held, and he was given calcium gluconate, albuterol, sodium bicarb, Kayexalate. He was placed on BiPAP for his CO2 narcosis. His ammonia level was elevated and he was started on lactulose. Recent candidal urinary infection was being treated with fluconazole, this was continued. The following morning his symptoms had improved, his renal function had improved, he was given an additional dose of Kayexalate for elevated potassium again. He was felt to be stable for discharge by nephrology, he was instructed to follow-up with urology as an outpatient in 1-2 weeks, continue Worrell catheter for now. He will also need to follow-up with his PCP in 1-2 weeks. He will follow-up with nephrology in 1-2 weeks. He was discharged back to [facility] in stable condition. He will [facility] and [facility] This patient was seen by Aden Ray PA-C under the supervision of Doctor Kauffman. [] Patient Problems: Active and Suspected Problems (Last Updated 02/05/19 @ 05:01 by Ricardo Lowery MD) Acute encephalopathy (Acute) Hyperkalemia (Acute) Obstructive uropathy (Acute) Hyperammonemia (Acute) - Physical Exam General: Alert, Oriented x3, Cooperative HEENT: Atraumatic, PERRLA, EOMI, Normocephalic Neck: Supple, No JVD, Negative Carotid Bruits Lungs: Clear to auscultation, Normal air movement Cardiovascular: Regular rate, No murmurs Abdomen: Bowel Sounds Present, Soft, Non Tender Extremities: Capillary Refill Less than 3 Seconds, Edema, - Skin: - - BL LE stasis dermatitis Musculoskeletal: No Tenderness to Palpation of Joints or Extremities Neurological: Cranial nerves II-XII grossly intact Psych/Mental Status: Agitated, Alert and oriented to time, place, person, mood and affect Vital Signs Temp Pulse Resp BP Pulse Ox 98.3 F 64 18 169/58 H 93 02/06/19 10:30 02/06/19 13:28 02/06/19 10:30 02/06/19 13:28 02/06/19 10:30 Oxygen Flow Rate (L/min) 5 Oxygen Delivery Method Room Air Weight: 302 lb 0.533 oz Body Mass Index (BMI) 45.9 Intake and Output for Last 24 Hours 02/04/19 02/05/1919 23:59 23:59 23:59 Intake Total 1897 / 1897 780 / 780 Output Total 1475 / 1475 625 / 625 Balance 422 / 422 155 / 155 Microbiology Past 72 Hours 02/05/19 02:00 Urine Culture - Preliminary Urine Catheter - Worrell Culture exhibits no growth. 02/05/19 02:08 Respiratory Panel (PCR) - Final Mucosa - Nasopharyngeal Laboratory Tests Past 24 Hrs 02/05/19 02/05/19 02/05/19 11:45 15:15 15:15 Hgb Hct Eos Smear Total Cells Sodium Potassium Chloride Carbon Dioxide Anion Gap BUN Creatinine Estim Creat Clear Calc Est GFR (MDRD) Af Amer Est GFR (MDRD) Non-Af BUN/Creatinine Ratio Glucose Calcium Iron 29 L TIBC 202 L Iron Saturation 14.4 L Ferritin 182 Total Bilirubin AST ALT Alkaline Phosphatase Ammonia B-Natriuretic Peptide Total Protein Albumin Globulin Albumin/Globulin Ratio Folate 2.10 L Urine Color Yellow Urine Clarity Clear Urine pH 5.0 Ur Specific Bradford 1.020 Urine Protein 30 H Urine Glucose (UA) Normal Urine Ketones Negative Urine Occult Blood 25 H Urine Nitrite Negative Urine Bilirubin Negative Urine Urobilinogen Normal Ur Leukocyte Esterase 100 H Urine RBC 0-5 SEEN Urine WBC 10-25 SEEN Ur Squamous Epith Cells 0 SEEN Urine Bacteria RARE Urine Mucus 0 SEEN Ur Random Sodium Urine Creatinine 172.00 02/05/19 02/05/19 02/05/19 15:15 15:45 15:45 Hgb Hct Eos Smear Total Cells Sodium Potassium Chloride Carbon Dioxide Anion Gap BUN Creatinine Estim Creat Clear Calc Est GFR (MDRD) Af Amer Est GFR (MDRD) Non-Af BUN/Creatinine Ratio Glucose Calcium Iron TIBC Iron Saturation Ferritin Total Bilirubin AST ALT Alkaline Phosphatase Ammonia 36.0 H B-Natriuretic Peptide 120.3 H Total Protein Albumin Globulin Albumin/Globulin Ratio Folate Urine Color Urine Clarity Urine pH Ur Specific Bradford Urine Protein Urine Glucose (UA) Urine Ketones Urine Occult Blood Urine Nitrite Urine Bilirubin Urine Urobilinogen Ur Leukocyte Esterase Urine RBC Urine WBC Ur Squamous Epith Cells Urine Bacteria Urine Mucus Ur Random Sodium 41 Urine Creatinine 02/05/19 02/05/19 02/06/19 15:45 21:16 05:00 Hgb 7.7 L 7.6 L Hct 26.6 L 26.3 L Eos Smear Total Cells Sodium 140 Potassium 5.8 H Chloride 112 H Carbon Dioxide 22.0 Anion Gap 6 BUN 56 H Creatinine 2.93 H Estim Creat Clear Calc 22.05 Est GFR (MDRD) Af Amer 27 L Est GFR (MDRD) Non-Af 23 L BUN/Creatinine Ratio 19.1 Glucose 109 H Calcium 8.3 L Iron TIBC Iron Saturation Ferritin Total Bilirubin 0.20 AST 23 ALT 9 L Alkaline Phosphatase 76 Ammonia B-Natriuretic Peptide Total Protein 6.8 Albumin 2.2 L Globulin 4.6 H Albumin/Globulin Ratio 0.5 L Folate Urine Color Urine Clarity Urine pH Ur Specific Bradford Urine Protein Urine Glucose (UA) Urine Ketones Urine Occult Blood Urine Nitrite Urine Bilirubin Urine Urobilinogen Ur Leukocyte Esterase Urine RBC Urine WBC Ur Squamous Epith Cells Urine Bacteria Urine Mucus Ur Random Sodium Urine Creatinine 02/06/19 02/06/19 02/06/19 05:00 10:55 10:55 Hgb Hct Eos Smear Total Cells Pending Sodium Potassium Chloride Carbon Dioxide Anion Gap BUN Creatinine Estim Creat Clear Calc Est GFR (MDRD) Af Amer Est GFR (MDRD) Non-Af BUN/Creatinine Ratio Glucose Calcium Iron TIBC Iron Saturation Ferritin Total Bilirubin AST ALT Alkaline Phosphatase Ammonia 36.0 H B-Natriuretic Peptide Total Protein Albumin Globulin Albumin/Globulin Ratio Folate Urine Color Urine Clarity Urine pH Ur Specific Bradford Urine Protein Urine Glucose (UA) Urine Ketones Urine Occult Blood Urine Nitrite Urine Bilirubin Urine Urobilinogen Ur Leukocyte Esterase Urine RBC Urine WBC Ur Squamous Epith Cells Urine Bacteria Urine Mucus Ur Random Sodium Urine Creatinine 66.90 02/06/19 10:55 Hgb Hct Eos Smear Total Cells Sodium Potassium Chloride Carbon Dioxide Anion Gap BUN Creatinine Estim Creat Clear Calc Est GFR (MDRD) Af Amer Est GFR (MDRD) Non-Af BUN/Creatinine Ratio Glucose Calcium Iron TIBC Iron Saturation Ferritin Total Bilirubin AST ALT Alkaline Phosphatase Ammonia B-Natriuretic Peptide Total Protein Albumin Globulin Albumin/Globulin Ratio Folate Urine Color Urine Clarity Urine pH Ur Specific Bradford Urine Protein Urine Glucose (UA) Urine Ketones Urine Occult Blood Urine Nitrite Urine Bilirubin Urine Urobilinogen Ur Leukocyte Esterase Urine RBC Urine WBC Ur Squamous Epith Cells Urine Bacteria Urine Mucus Ur Random Sodium 48 Urine Creatinine POC Glucose 02/06/19 02/06/19 02/05/19 11:34 06:37 21:59 POC Glucose 114 H 107 131 H 02/05/19 15:47 POC Glucose 100 Discharge Diet: Low fat/ Low Cholesterol, 1800 Calorie Control Diet, 2000 mg Sodium Diet, Renal Diet Discharge Activity: Return to Normal Activity Home Medications: Medications to take at Discharge Atenolol [Tenormin (beta mirza)] 50 mg PO DAILY 02/04/19 Cholecalciferol (VIT D3) [Vitamin D3] 1,000 unit PO DAILY 02/04/19 Docusate Sodium [Colace] 100 mg PO BID 02/04/19 Fluconazole [Diflucan] 200 mg PO DAILY 02/04/19 Insulin NPH Human Isophane [Novolin N] 40 unit SQ BID 02/04/19 Omeprazole [Prilosec] 20 mg PO DAILY 02/04/19 Oxybutynin Chloride [Ditropan Xl] 10 mg PO DAILY 02/04/19 Tamsulosin HCl [Flomax] 0.4 mg PO DAILY 02/04/19 Topiramate [Topamax] 100 mg PO DAILY 02/04/19 Acetaminophen [Tylenol] 1,000 mg PO Q8H PRN PRN tablet 02/06/19 Ferrous Sulfate 325 mg PO 1200,1700 tablet 02/06/19 Folic Acid 1 mg PO DAILY@0800 tablet 02/06/19 Lactulose [Chronulac] 20 gm PO BID udc 02/06/19 Magnesium Hydroxide [Milk Of Magnesia] 30 ml PO DAILY PRN PRN udc 02/06/19 hydrALAZINE [Apresoline] 10 mg PO TID #90 tablet 02/06/19 Following Prescrptions Were Given to Patient: hydrALAZINE [Apresoline] 10 mg PO TID #90 tablet Primary Care Physician: Care Physician,No Primary [Primary Care Provider] - Please follow up with your Primary Care Physician in: 2 weeks Please Follow Up With: Tyrone Abebe MD When: 1-2 weeks Please Follow Up With: Lise Pineda MD When: 2 weeks Disposition: Long-Term facility Minutes spent on discharge:: 35 Patient Condition:: Stable Medical Necessity - Tobacco Use Smoking Status: Unknown if ever smoked Tobacco Use: - - Unable to obtain at this time because of acute encephalopathy. Meaningful Use Info Meaningful Use Diagnoses (Choose all that apply): None applicable <Painpriya,Paterson - Last Filed: 02/06/19 15:55> Discharge Date and Diagnosis - Primary Discharge Diagnosis Active and Suspected Problems (Last Updated 02/05/19 @ 05:01 by Ricardo Lowery MD) Acute encephalopathy (Acute) Hyperkalemia (Acute) Obstructive uropathy (Acute) Hyperammonemia (Acute) - Secondary Discharge Diagnosis Chronic Problems (Last Updated 02/05/19 @ 05:01 by Ricardo Lowery MD) Acute kidney injury superimposed on chronic kidney disease (Chronic) Folate deficiency anemia (Chronic) Venous stasis dermatitis (Chronic) HTN (hypertension) (Chronic) Morbid obesity (Chronic) T2DM (type 2 diabetes mellitus) (Chronic) Hospital Course and Treatment Summary of Care Provided: The patient is a 73 year old M with past medical history of CKD stage III, recurrent lower extremity edema, who has been recurrently admitted to the [facility], comes in with complaints of inability to pass Worrell catheter and found to be confused. Was also found to have acute kidney injury. Urology was consulted, bedside Worrell catheter was placed as well as A dorsal slit of his phimosis at the bedside. Patient improving his creatinine after the passage of the Worrell catheter. He was found to have CO2 narcosis and improved with BiPAP. His ammonia level was elevated, it was unclear why it was elevated. He improved on lactulose. He was continued on his fluconazole for candiduria. Patient was noted to have hyperkalemia, improved with Kayexalate treatment. Nephrology was consulted. He was [facility] in an improved state. He was off oxygen at time of being discharged. On the day of discharge, patient denied any new complaints, he denied any chest pain or dizziness or palpitation. Physical exam: Physical Exam: Gen: Obese, not pale, not jaundiced, alert oriented x3, not on oxygen CVS:HS I +II, regular, no murmurs RESP: Diminished at lung bases GI: Full, firm, nontender, no ballotable organs EXT:Bilateral pedal edema, +4 with chronic venous stasis and erythema of the mid to lower legs, no differential warmth - Physical Exam Vital Signs Temp Pulse Resp BP Pulse Ox 98.3 F 64 18 169/58 H 93 02/06/19 10:30 02/06/19 13:28 02/06/19 10:30 02/06/19 13:28 02/06/19 10:30 Oxygen Flow Rate (L/min) 5 Oxygen Delivery Method Room Air Weight: 137 kg Body Mass Index (BMI) 45.9 Intake and Output for Last 24 Hours 02/04/19 02/05/19 02/06/19 23:59 23:59 23:59 Intake Total 1897 / 1897 780 / 780 Output Total 1475 / 1475 625 / 625 Balance 422 / 422 155 / 155 Microbiology Past 72 Hours 02/05/19 02:00 Urine Culture - Preliminary Urine Catheter - Worrell Culture exhibits no growth. 02/05/19 02:08 Respiratory Panel (PCR) - Final Mucosa - Nasopharyngeal Laboratory Tests Past 24 Hrs 02/05/19 02/05/19 02/05/19 11:45 15:15 15:15 Hgb Hct Eos Smear Total Cells Sodium Potassium Chloride Carbon Dioxide Anion Gap BUN Creatinine Estim Creat Clear Calc Est GFR (MDRD) Af Amer Est GFR (MDRD) Non-Af BUN/Creatinine Ratio Glucose Calcium Iron 29 L TIBC 202 L Iron Saturation 14.4 L Ferritin 182 Total Bilirubin AST ALT Alkaline Phosphatase Ammonia B-Natriuretic Peptide Total Protein Albumin Globulin Albumin/Globulin Ratio Folate 2.10 L Urine Color Yellow Urine Clarity Clear Urine pH 5.0 Ur Specific Bradford 1.020 Urine Protein 30 H Urine Glucose (UA) Normal Urine Ketones Negative Urine Occult Blood 25 H Urine Nitrite Negative Urine Bilirubin Negative Urine Urobilinogen Normal Ur Leukocyte Esterase 100 H Urine RBC 0-5 SEEN Urine WBC 10-25 SEEN Ur Squamous Epith Cells 0 SEEN Urine Bacteria RARE Urine Mucus 0 SEEN Ur Random Sodium Urine Creatinine 172.00 02/05/19 02/05/19 02/05/19 15:15 15:45 15:45 Hgb Hct Eos Smear Total Cells Sodium Potassium Chloride Carbon Dioxide Anion Gap BUN Creatinine Estim Creat Clear Calc Est GFR (MDRD) Af Amer Est GFR (MDRD) Non-Af BUN/Creatinine Ratio Glucose Calcium Iron TIBC Iron Saturation Ferritin Total Bilirubin AST ALT Alkaline Phosphatase Ammonia 36.0 H B-Natriuretic Peptide 120.3 H Total Protein Albumin Globulin Albumin/Globulin Ratio Folate Urine Color Urine Clarity Urine pH Ur Specific Bradford Urine Protein Urine Glucose (UA) Urine Ketones Urine Occult Blood Urine Nitrite Urine Bilirubin Urine Urobilinogen Ur Leukocyte Esterase Urine RBC Urine WBC Ur Squamous Epith Cells Urine Bacteria Urine Mucus Ur Random Sodium 41 Urine Creatinine 02/05/19 02/05/19 02/06/19 15:45 21:16 05:00 Hgb 7.7 L 7.6 L Hct 26.6 L 26.3 L Eos Smear Total Cells Sodium 140 Potassium 5.8 H Chloride 112 H Carbon Dioxide 22.0 Anion Gap 6 BUN 56 H Creatinine 2.93 H Estim Creat Clear Calc 22.05 Est GFR (MDRD) Af Amer 27 L Est GFR (MDRD) Non-Af 23 L BUN/Creatinine Ratio 19.1 Glucose 109 H Calcium 8.3 L Iron TIBC Iron Saturation Ferritin Total Bilirubin 0.20 AST 23 ALT 9 L Alkaline Phosphatase 76 Ammonia B-Natriuretic Peptide Total Protein 6.8 Albumin 2.2 L Globulin 4.6 H Albumin/Globulin Ratio 0.5 L Folate Urine Color Urine Clarity Urine pH Ur Specific Bradford Urine Protein Urine Glucose (UA) Urine Ketones Urine Occult Blood Urine Nitrite Urine Bilirubin Urine Urobilinogen Ur Leukocyte Esterase Urine RBC Urine WBC Ur Squamous Epith Cells Urine Bacteria Urine Mucus Ur Random Sodium Urine Creatinine 02/06/19 02/06/19 02/06/19 05:00 10:55 10:55 Hgb Hct Eos Smear Total Cells Pending Sodium Potassium Chloride Carbon Dioxide Anion Gap BUN Creatinine Estim Creat Clear Calc Est GFR (MDRD) Af Amer Est GFR (MDRD) Non-Af BUN/Creatinine Ratio Glucose Calcium Iron TIBC Iron Saturation Ferritin Total Bilirubin AST ALT Alkaline Phosphatase Ammonia 36.0 H B-Natriuretic Peptide Total Protein Albumin Globulin Albumin/Globulin Ratio Folate Urine Color Urine Clarity Urine pH Ur Specific Bradford Urine Protein Urine Glucose (UA) Urine Ketones Urine Occult Blood Urine Nitrite Urine Bilirubin Urine Urobilinogen Ur Leukocyte Esterase Urine RBC Urine WBC Ur Squamous Epith Cells Urine Bacteria Urine Mucus Ur Random Sodium Urine Creatinine 66.90 02/06/19 02/06/19 10:55 14:35 Hgb Hct Eos Smear Total Cells Sodium 143 Potassium 5.4 H Chloride 111 H Carbon Dioxide 23.0 Anion Gap 9 BUN 53 H Creatinine 2.69 H Estim Creat Clear Calc 24.01 Est GFR (MDRD) Af Amer 30 L Est GFR (MDRD) Non-Af 25 L BUN/Creatinine Ratio 19.7 Glucose 136 H Calcium 8.8 Iron TIBC Iron Saturation Ferritin Total Bilirubin AST ALT Alkaline Phosphatase Ammonia B-Natriuretic Peptide Total Protein Albumin Globulin Albumin/Globulin Ratio Folate Urine Color Urine Clarity Urine pH Ur Specific Bradford Urine Protein Urine Glucose (UA) Urine Ketones Urine Occult Blood Urine Nitrite Urine Bilirubin Urine Urobilinogen Ur Leukocyte Esterase Urine RBC Urine WBC Ur Squamous Epith Cells Urine Bacteria Urine Mucus Ur Random Sodium 48 Urine Creatinine POC Glucose 02/06/19 02/06/19 02/05/19 11:34 06:37 21:59 POC Glucose 114 H 107 131 H 02/05/19 15:47 POC Glucose 100 Code Visit Inpatient E&M: [id number] Disch Hosp
--- NOTE | 2019-02-06 14:47 | DS.PCM_ITS ---
<Aden Ray - Last Filed: 02/06/19 14:42> Discharge Date and Diagnosis - Problem List Patient Problems: Active and Suspected Problems (Last Updated 02/05/19 @ 05:01 by Ricardo Lowery MD) Acute encephalopathy (Acute) Hyperkalemia (Acute) Obstructive uropathy (Acute) Hyperammonemia (Acute) Date of Admission: 02/04/19 Date of Discharge: 02/06/19 - Primary Discharge Diagnosis Active and Suspected Problems (Last Updated 02/05/19 @ 05:01 by Ricardo Lowery MD) Acute encephalopathy (Acute), likely 2/2 ARMIDA ARMIDA Hyperkalemia (Acute) Obstructive uropathy (Acute) Hyperammonemia (Acute) Folic acid def. anemia HTN - Secondary Discharge Diagnosis Chronic Problems (Last Updated 02/05/19 @ 05:01 by Ricardo Lowery MD) Acute kidney injury superimposed on chronic kidney disease (Chronic) Folate deficiency anemia (Chronic) Venous stasis dermatitis (Chronic) HTN (hypertension) (Chronic) Morbid obesity (Chronic) T2DM (type 2 diabetes mellitus) (Chronic) Hospital Course and Treatment Imaging Results: Echo: Interpretation Summary The estimated ejection fraction is 65 %. Stage 2 diastolic dysfunction. Mildly dilated right ventricle. Mild to moderate (1-2+) tricuspid valve insufficiency. Right ventricular systolic pressure estimated to be 58 mmHg, but may be underestimated. At least moderate pulmonary hypertension, but may be underestimated. There is no comparison study available. RAD/Chest 1 View (Portable) IMPRESSION: Cardiomegaly. CHF. US/Kidney and Bladder IMPRESSION: Normal ultrasound of the kidneys. Consults: Urology - [facility] Operations: None Procedures: 2-D Echocardiogram Summary of Care Provided: Hospital course: The patient is a 73 year old M with past medical history as above who was sent from care home to the ED at [facility], subsequently transferred to [facility] with increased confusion, ARMIDA, bradycardia, and obstructive uropathy, and CO2 narcosis. He had a severe phimosis. He also had elevated potassium. Urology was consulted who cut the phimosis and placed a Worrell catheter. Nephrology was consulted given his renal failure. He had his nephrotoxic agents held, and he was given calcium gluconate, albuterol, sodium bicarb, Kayexalate. He was placed on BiPAP for his CO2 narcosis. His ammonia level was elevated and he was started on lactulose. Recent candidal urinary infection was being treated with fluconazole, this was continued. The following morning his symptoms had improved, his renal function had improved, he was given an additional dose of Kayexalate for elevated potassium again. He was felt to be stable for discharge by nephrology, he was instructed to follow-up with urology as an outpatient in 1-2 weeks, continue Worrell catheter for now. He will also need to follow-up with his PCP in 1-2 weeks. He will follow-up with nephrology in 1-2 weeks. He was discharged back to care home in stable condition. He will need his CBC and BMP monitored at the [facility]. This patient was seen by Aden Ray PA-C under the supervision of Doctor Kauffman. [] Patient Problems: Active and Suspected Problems (Last Updated 02/05/19 @ 05:01 by Ricardo Lowery MD) Acute encephalopathy (Acute) Hyperkalemia (Acute) Obstructive uropathy (Acute) Hyperammonemia (Acute) - Physical Exam General: Alert, Oriented x3, Cooperative HEENT: Atraumatic, PERRLA, EOMI, Normocephalic Neck: Supple, No JVD, Negative Carotid Bruits Lungs: Clear to auscultation, Normal air movement Cardiovascular: Regular rate, No murmurs Abdomen: Bowel Sounds Present, Soft, Non Tender Extremities: Capillary Refill Less than 3 Seconds, Edema, - Skin: - - BL LE stasis dermatitis Musculoskeletal: No Tenderness to Palpation of Joints or Extremities Neurological: Cranial nerves II-XII grossly intact Psych/Mental Status: Agitated, Alert and oriented to time, place, person, mood and affect Vital Signs Temp Pulse Resp BP Pulse Ox 98.3 F 64 18 169/58 H 93 02/06/19 10:30 02/06/19 13:28 02/06/19 10:30 02/06/19 13:28 02/06/19 10:30 Oxygen Flow Rate (L/min) 5 Oxygen Delivery Method Room Air Weight: 302 lb 0.533 oz Body Mass Index (BMI) 45.9 Intake and Output for Last 24 Hours 02/04/19 02/05/1919 23:59 23:59 23:59 Intake Total 1897 / 1897 780 / 780 Output Total 1475 / 1475 625 / 625 Balance 422 / 422 155 / 155 Microbiology Past 72 Hours 02/05/19 02:00 Urine Culture - Preliminary Urine Catheter - Worrell Culture exhibits no growth. 02/05/19 02:08 Respiratory Panel (PCR) - Final Mucosa - Nasopharyngeal Laboratory Tests Past 24 Hrs 02/05/19 02/05/19 02/05/19 11:45 15:15 15:15 Hgb Hct Eos Smear Total Cells Sodium Potassium Chloride Carbon Dioxide Anion Gap BUN Creatinine Estim Creat Clear Calc Est GFR (MDRD) Af Amer Est GFR (MDRD) Non-Af BUN/Creatinine Ratio Glucose Calcium Iron 29 L TIBC 202 L Iron Saturation 14.4 L Ferritin 182 Total Bilirubin AST ALT Alkaline Phosphatase Ammonia B-Natriuretic Peptide Total Protein Albumin Globulin Albumin/Globulin Ratio Folate 2.10 L Urine Color Yellow Urine Clarity Clear Urine pH 5.0 Ur Specific [place] 1.020 Urine Protein 30 H Urine Glucose (UA) Normal Urine Ketones Negative Urine Occult Blood 25 H Urine Nitrite Negative Urine Bilirubin Negative Urine Urobilinogen Normal Ur Leukocyte Esterase 100 H Urine RBC 0-5 SEEN Urine WBC 10-25 SEEN Ur Squamous Epith Cells 0 SEEN Urine Bacteria RARE Urine Mucus 0 SEEN Ur Random Sodium Urine Creatinine 172.00 02/05/19 02/05/19 02/05/19 15:15 15:45 15:45 Hgb Hct Eos Smear Total Cells Sodium Potassium Chloride Carbon Dioxide Anion Gap BUN Creatinine Estim Creat Clear Calc Est GFR (MDRD) Af Amer Est GFR (MDRD) Non-Af BUN/Creatinine Ratio Glucose Calcium Iron TIBC Iron Saturation Ferritin Total Bilirubin AST ALT Alkaline Phosphatase Ammonia 36.0 H B-Natriuretic Peptide 120.3 H Total Protein Albumin Globulin Albumin/Globulin Ratio Folate Urine Color Urine Clarity Urine pH Ur Specific [place] Urine Protein Urine Glucose (UA) Urine Ketones Urine Occult Blood Urine Nitrite Urine Bilirubin Urine Urobilinogen Ur Leukocyte Esterase Urine RBC Urine WBC Ur Squamous Epith Cells Urine Bacteria Urine Mucus Ur Random Sodium 41 Urine Creatinine 02/05/19 02/05/19 02/06/19 15:45 21:16 05:00 Hgb 7.7 L 7.6 L Hct 26.6 L 26.3 L Eos Smear Total Cells Sodium 140 Potassium 5.8 H Chloride 112 H Carbon Dioxide 22.0 Anion Gap 6 BUN 56 H Creatinine 2.93 H Estim Creat Clear Calc 22.05 Est GFR (MDRD) Af Amer 27 L Est GFR (MDRD) Non-Af 23 L BUN/Creatinine Ratio 19.1 Glucose 109 H Calcium 8.3 L Iron TIBC Iron Saturation Ferritin Total Bilirubin 0.20 AST 23 ALT 9 L Alkaline Phosphatase 76 Ammonia B-Natriuretic Peptide Total Protein 6.8 Albumin 2.2 L Globulin 4.6 H Albumin/Globulin Ratio 0.5 L Folate Urine Color Urine Clarity Urine pH Ur Specific [place] Urine Protein Urine Glucose (UA) Urine Ketones Urine Occult Blood Urine Nitrite Urine Bilirubin Urine Urobilinogen Ur Leukocyte Esterase Urine RBC Urine WBC Ur Squamous Epith Cells Urine Bacteria Urine Mucus Ur Random Sodium Urine Creatinine 02/06/19 02/06/19 02/06/19 05:00 10:55 10:55 Hgb Hct Eos Smear Total Cells Pending Sodium Potassium Chloride Carbon Dioxide Anion Gap BUN Creatinine Estim Creat Clear Calc Est GFR (MDRD) Af Amer Est GFR (MDRD) Non-Af BUN/Creatinine Ratio Glucose Calcium Iron TIBC Iron Saturation Ferritin Total Bilirubin AST ALT Alkaline Phosphatase Ammonia 36.0 H B-Natriuretic Peptide Total Protein Albumin Globulin Albumin/Globulin Ratio Folate Urine Color Urine Clarity Urine pH Ur Specific [place] Urine Protein Urine Glucose (UA) Urine Ketones Urine Occult Blood Urine Nitrite Urine Bilirubin Urine Urobilinogen Ur Leukocyte Esterase Urine RBC Urine WBC Ur Squamous Epith Cells Urine Bacteria Urine Mucus Ur Random Sodium Urine Creatinine 66.90 02/06/19 10:55 Hgb Hct Eos Smear Total Cells Sodium Potassium Chloride Carbon Dioxide Anion Gap BUN Creatinine Estim Creat Clear Calc Est GFR (MDRD) Af Amer Est GFR (MDRD) Non-Af BUN/Creatinine Ratio Glucose Calcium Iron TIBC Iron Saturation Ferritin Total Bilirubin AST ALT Alkaline Phosphatase Ammonia B-Natriuretic Peptide Total Protein Albumin Globulin Albumin/Globulin Ratio Folate Urine Color Urine Clarity Urine pH Ur Specific [place] Urine Protein Urine Glucose (UA) Urine Ketones Urine Occult Blood Urine Nitrite Urine Bilirubin Urine Urobilinogen Ur Leukocyte Esterase Urine RBC Urine WBC Ur Squamous Epith Cells Urine Bacteria Urine Mucus Ur Random Sodium 48 Urine Creatinine POC Glucose 02/06/19 02/06/19 02/05/19 11:34 06:37 21:59 POC Glucose 114 H 107 131 H 02/05/19 15:47 POC Glucose 100 Discharge Diet: Low fat/ Low Cholesterol, 1800 Calorie Control Diet, 2000 mg Sodium Diet, Renal Diet Discharge Activity: Return to Normal Activity Home Medications: Medications to take at Discharge Atenolol [Tenormin (beta mirza)] 50 mg PO DAILY 02/04/19 Cholecalciferol (VIT D3) [Vitamin D3] 1,000 unit PO DAILY 02/04/19 Docusate Sodium [Colace] 100 mg PO BID 02/04/19 Fluconazole [Diflucan] 200 mg PO DAILY 02/04/19 Insulin NPH Human Isophane [Novolin N] 40 unit SQ BID 02/04/19 Omeprazole [Prilosec] 20 mg PO DAILY 02/04/19 Oxybutynin Chloride [Ditropan Xl] 10 mg PO DAILY 02/04/19 Tamsulosin HCl [Flomax] 0.4 mg PO DAILY 02/04/19 Topiramate [Topamax] 100 mg PO DAILY 02/04/19 Acetaminophen [Tylenol] 1,000 mg PO Q8H PRN PRN tablet 02/06/19 Ferrous Sulfate 325 mg PO 1200,1700 tablet 02/06/19 Folic Acid 1 mg PO DAILY@0800 tablet 02/06/19 Lactulose [Chronulac] 20 gm PO BID udc 02/06/19 Magnesium Hydroxide [Milk Of Magnesia] 30 ml PO DAILY PRN PRN udc 02/06/19 hydrALAZINE [Apresoline] 10 mg PO TID #90 tablet 02/06/19 Following Prescrptions Were Given to Patient: hydrALAZINE [Apresoline] 10 mg PO TID #90 tablet Primary Care Physician: Care Physician,No Primary [Primary Care Provider] - Please follow up with your Primary Care Physician in: 2 weeks Please Follow Up With: Tyrone Abebe MD When: 1-2 weeks Please Follow Up With: Lise Pineda MD When: 2 weeks Disposition: Correction facility Minutes spent on discharge:: 35 Patient Condition:: Stable Medical Necessity - Tobacco Use Smoking Status: Unknown if ever smoked Tobacco Use: - - Unable to obtain at this time because of acute encephalopathy. Meaningful Use Info Meaningful Use Diagnoses (Choose all that apply): None applicable <Painpriya,[place] - Last Filed: 02/06/19 15:55> Discharge Date and Diagnosis - Primary Discharge Diagnosis Active and Suspected Problems (Last Updated 02/05/19 @ 05:01 by Ricardo Lowery MD) Acute encephalopathy (Acute) Hyperkalemia (Acute) Obstructive uropathy (Acute) Hyperammonemia (Acute) - Secondary Discharge Diagnosis Chronic Problems (Last Updated 02/05/19 @ 05:01 by Ricardo Lowery MD) Acute kidney injury superimposed on chronic kidney disease (Chronic) Folate deficiency anemia (Chronic) Venous stasis dermatitis (Chronic) HTN (hypertension) (Chronic) Morbid obesity (Chronic) T2DM (type 2 diabetes mellitus) (Chronic) Hospital Course and Treatment Summary of Care Provided: The patient is a 73 year old M with past medical history of CKD stage III, recurrent lower extremity edema, who has been recurrently admitted to the [facility], comes in with complaints of inability to pass Worrell catheter and found to be confused. Was also found to have acute kidney injury. Urology was consulted, bedside Worrell catheter was placed as well as A dorsal slit of his phimosis at the bedside. Patient improving his creatinine after the passage of the Worrell catheter. He was found to have CO2 narcosis and improved with BiPAP. His ammonia level was elevated, it was unclear why it was elevated. He improved on lactulose. He was continued on his fluconazole for candiduria. Patient was noted to have hyperkalemia, improved with Kayexalate treatment. Nephrology was consulted. He was discharged to the care home facility in an improved state. He was off oxygen at time of being discharged. On the day of discharge, patient denied any new complaints, he denied any chest pain or dizziness or palpitation. Physical exam: Physical Exam: Gen: Obese, not pale, not jaundiced, alert oriented x3, not on oxygen CVS:HS I +II, regular, no murmurs RESP: Diminished at lung bases GI: Full, firm, nontender, no ballotable organs EXT:Bilateral pedal edema, +4 with chronic venous stasis and erythema of the mid to lower legs, no differential warmth - Physical Exam Vital Signs Temp Pulse Resp BP Pulse Ox 98.3 F 64 18 169/58 H 93 02/06/19 10:30 02/06/19 13:28 02/06/19 10:30 02/06/19 13:28 02/06/19 10:30 Oxygen Flow Rate (L/min) 5 Oxygen Delivery Method Room Air Weight: 137 kg Body Mass Index (BMI) 45.9 Intake and Output for Last 24 Hours 02/04/19 02/05/19 02/06/19 23:59 23:59 23:59 Intake Total 1897 / 1897 780 / 780 Output Total 1475 / 1475 625 / 625 Balance 422 / 422 155 / 155 Microbiology Past 72 Hours 02/05/19 02:00 Urine Culture - Preliminary Urine Catheter - Worrell Culture exhibits no growth. 02/05/19 02:08 Respiratory Panel (PCR) - Final Mucosa - Nasopharyngeal Laboratory Tests Past 24 Hrs 02/05/19 02/05/19 02/05/19 11:45 15:15 15:15 Hgb Hct Eos Smear Total Cells Sodium Potassium Chloride Carbon Dioxide Anion Gap BUN Creatinine Estim Creat Clear Calc Est GFR (MDRD) Af Amer Est GFR (MDRD) Non-Af BUN/Creatinine Ratio Glucose Calcium Iron 29 L TIBC 202 L Iron Saturation 14.4 L Ferritin 182 Total Bilirubin AST ALT Alkaline Phosphatase Ammonia B-Natriuretic Peptide Total Protein Albumin Globulin Albumin/Globulin Ratio Folate 2.10 L Urine Color Yellow Urine Clarity Clear Urine pH 5.0 Ur Specific [place] 1.020 Urine Protein 30 H Urine Glucose (UA) Normal Urine Ketones Negative Urine Occult Blood 25 H Urine Nitrite Negative Urine Bilirubin Negative Urine Urobilinogen Normal Ur Leukocyte Esterase 100 H Urine RBC 0-5 SEEN Urine WBC 10-25 SEEN Ur Squamous Epith Cells 0 SEEN Urine Bacteria RARE Urine Mucus 0 SEEN Ur Random Sodium Urine Creatinine 172.00 02/05/19 02/05/19 02/05/19 15:15 15:45 15:45 Hgb Hct Eos Smear Total Cells Sodium Potassium Chloride Carbon Dioxide Anion Gap BUN Creatinine Estim Creat Clear Calc Est GFR (MDRD) Af Amer Est GFR (MDRD) Non-Af BUN/Creatinine Ratio Glucose Calcium Iron TIBC Iron Saturation Ferritin Total Bilirubin AST ALT Alkaline Phosphatase Ammonia 36.0 H B-Natriuretic Peptide 120.3 H Total Protein Albumin Globulin Albumin/Globulin Ratio Folate Urine Color Urine Clarity Urine pH Ur Specific [place] Urine Protein Urine Glucose (UA) Urine Ketones Urine Occult Blood Urine Nitrite Urine Bilirubin Urine Urobilinogen Ur Leukocyte Esterase Urine RBC Urine WBC Ur Squamous Epith Cells Urine Bacteria Urine Mucus Ur Random Sodium 41 Urine Creatinine 02/05/19 02/05/19 02/06/19 15:45 21:16 05:00 Hgb 7.7 L 7.6 L Hct 26.6 L 26.3 L Eos Smear Total Cells Sodium 140 Potassium 5.8 H Chloride 112 H Carbon Dioxide 22.0 Anion Gap 6 BUN 56 H Creatinine 2.93 H Estim Creat Clear Calc 22.05 Est GFR (MDRD) Af Amer 27 L Est GFR (MDRD) Non-Af 23 L BUN/Creatinine Ratio 19.1 Glucose 109 H Calcium 8.3 L Iron TIBC Iron Saturation Ferritin Total Bilirubin 0.20 AST 23 ALT 9 L Alkaline Phosphatase 76 Ammonia B-Natriuretic Peptide Total Protein 6.8 Albumin 2.2 L Globulin 4.6 H Albumin/Globulin Ratio 0.5 L Folate Urine Color Urine Clarity Urine pH Ur Specific [place] Urine Protein Urine Glucose (UA) Urine Ketones Urine Occult Blood Urine Nitrite Urine Bilirubin Urine Urobilinogen Ur Leukocyte Esterase Urine RBC Urine WBC Ur Squamous Epith Cells Urine Bacteria Urine Mucus Ur Random Sodium Urine Creatinine 02/06/19 02/06/19 02/06/19 05:00 10:55 10:55 Hgb Hct Eos Smear Total Cells Pending Sodium Potassium Chloride Carbon Dioxide Anion Gap BUN Creatinine Estim Creat Clear Calc Est GFR (MDRD) Af Amer Est GFR (MDRD) Non-Af BUN/Creatinine Ratio Glucose Calcium Iron TIBC Iron Saturation Ferritin Total Bilirubin AST ALT Alkaline Phosphatase Ammonia 36.0 H B-Natriuretic Peptide Total Protein Albumin Globulin Albumin/Globulin Ratio Folate Urine Color Urine Clarity Urine pH Ur Specific [place] Urine Protein Urine Glucose (UA) Urine Ketones Urine Occult Blood Urine Nitrite Urine Bilirubin Urine Urobilinogen Ur Leukocyte Esterase Urine RBC Urine WBC Ur Squamous Epith Cells Urine Bacteria Urine Mucus Ur Random Sodium Urine Creatinine 66.90 02/06/19 02/06/19 10:55 14:35 Hgb Hct Eos Smear Total Cells Sodium 143 Potassium 5.4 H Chloride 111 H Carbon Dioxide 23.0 Anion Gap 9 BUN 53 H Creatinine 2.69 H Estim Creat Clear Calc 24.01 Est GFR (MDRD) Af Amer 30 L Est GFR (MDRD) Non-Af 25 L BUN/Creatinine Ratio 19.7 Glucose 136 H Calcium 8.8 Iron TIBC Iron Saturation Ferritin Total Bilirubin AST ALT Alkaline Phosphatase Ammonia B-Natriuretic Peptide Total Protein Albumin Globulin Albumin/Globulin Ratio Folate Urine Color Urine Clarity Urine pH Ur Specific [place] Urine Protein Urine Glucose (UA) Urine Ketones Urine Occult Blood Urine Nitrite Urine Bilirubin Urine Urobilinogen Ur Leukocyte Esterase Urine RBC Urine WBC Ur Squamous Epith Cells Urine Bacteria Urine Mucus Ur Random Sodium 48 Urine Creatinine POC Glucose 02/06/19 02/06/19 02/05/19 11:34 06:37 21:59 POC Glucose 114 H 107 131 H 02/05/19 15:47 POC Glucose 100 Code Visit Inpatient E&M: [id number] Disch Hosp
[2019-02-06 15:11] LABS: Anion Gap 9 (5-15); BUN 53 mg/dL (7-18); BUN/Creat Ratio 19.7 RATIO (10-20); Calcium,Total 8.8 mg/dL (8.5-10.1); Chloride 111 mmol/L (98-107); Creatinine, Serum 2.69 mg/dL (0.70-1.30); EST Glomerular Filtration Rate 25 mL/min (>60); Est Glom Filt Rate - Afr Amer 30 mL/min (>60); Estimated Creatinine Clearance 24.01 ml/min; Glucose 136 mg/dL (74-106); Potassium 5.4 mmol/L (3.5-5.1); Sodium Level 143 mmol/L (136-145)
--- NOTE | 2019-02-06 16:01 | NURSING ---
report called to Gregor Carlton
[2019-02-07 14:55] LABS: Eosinophil Ct. Urine 2 % (.)
== END 2019-02-06 16:20 | disposition skilled nursing facility (03) | DRG 682 ==
LOC: MS2 02-05 02:58 → PCU 02-05 03:42
PROVIDERS: Internal Medicine Nephrology; Nurse Practitioner Family; Physician Assistant; Admitting Provider Hospitalist; Referring Provider Hospitalist; Visit Provider Internal Medicine
DX: N17.9 Acute kidney failure, unspecified (principal); G93.41 Metabolic encephalopathy; J96.02 Acute respiratory failure with hypercapnia; J96.01 Acute respiratory failure with hypoxia; Z68.42 Body mass index [BMI] 45.0-49.9, adult; E72.20 Disorder of urea cycle metabolism, unspecified; B37.49 Other urogenital candidiasis; N13.9 Obstructive and reflux uropathy, unspecified; E87.5 Hyperkalemia; D52.9 Folate deficiency anemia, unspecified; E66.01 Morbid (severe) obesity due to excess calories; I12.9 Hypertensive chronic kidney disease with stage 1 through stage 4 chronic kidney disease, or unspecified chronic kidney disease; E11.22 Type 2 diabetes mellitus with diabetic chronic kidney disease; N18.3 Chronic kidney disease, stage 3 (moderate); N47.1 Phimosis; R00.1 Bradycardia, unspecified; R33.9 Retention of urine, unspecified
CPT/HCPCS: 36415; 36600; 71045; 76770; 80048; 80053; 80076; 81001; 82140; 82310; 82374; 82435; 82565; 82570; 82607; 82728; 82746; 82803; 82947; 82962; 83540; 83550; 83880; 84132; 84295; 84300; 84443; 84520; 85014; 85018; 85025; 87086; 87205; 87633; 93306; 94002; 94003; 97163; 97166; 97535; 97802; J7030; Q9957; A4216; J0610; J7799